=== PATIENT | male | born 1940 | race Caucasian/White ===

== ENCOUNTER 2023-09-04 10:36 | Emergency (ER) | payer OTHER, SELFPAY ==
[2023-09-04] VITALS (19 sets, daily range): BP systolic 109–159; BP diastolic 56–113
[2023-09-04] MEDS: NSS 500 IV (12:10)
[2023-09-04] MEDS: MORPHINE SULFATE 4 MG IV (12:10)
--- NOTE | 2023-09-04 12:23 | ED.GENMED ---
History of Present Illness
General
Chief Complaint: Extremity Pain (non-traumatic)
Source: patient and spouse
Exam Limitations: none
Time Seen by Provider: 09/04/23 11:54
Travel History
Have you had any contact with someone who has COVID-19?: No
Do you have any symptoms of coronavirus? Fever > 100 degrees, chills, cough, shortness of breath, sore throat, loss of taste or smell, muscle aches, or headache?: No
History of Present Illness
History of Present Illness:
Patient noted a sudden pain in the left proximal leg after getting out of a vehicle. No history of same. Pain is severe in nature. No other fall or injury
Past History
Past History
ED Past Medical History: HTN, NIDDM and Other (Herniated disc)
ED Past Surgical History: Orthopedic and Tonsilectomy
Review of Systems
Review of Systems
All Other Systems: Not applicable
ABD/GI: Reports no symptoms
Phy Exam
Physical Exam
Physical Exam:
GENERAL: Alert and oriented. Nontoxic but quite uncomfortable. Strongly requesting pain medication
EYE: Orbits normal.
NECK: Supple
CARDIAC: Regular rate and rhythm without any obvious murmurs.
LUNGS: Clear breath sounds,normal
ABDOMEN: Soft, without focal tenderness or distention
NEUROLOGICAL: Alert and oriented , grossly non-focal
SKIN: Warm and dry, no rash or lesion, no discoloration, skin intact.
MUSCULOSKELETAL: Shortening to the left leg with internal rotation. Good distal pulses and color. Chronic lower extremity edema. Significant pain with any hip rotation
PSYCH: Normal and appropriate interaction.
Course
Orders/Labs/Results
Orders:
Orders
09/04/23
Hip, Left 2-3 Views [CR Hip - LT w/wo Pel 2-3 Vw*] Urgent
Comment:
Reason For Exam: Sudden severe pain
Include a pelvis x-ray?: No
09/04/23 11:58
IV Insert/Care/Rem.- Treatment PRN
0.9% Sodium Chloride 500 ml [Nss] 500 ml IV BOLUS
Morphine Sulfate 4 mg IV NOW STA
09/04/23 13:01
Propofol [Diprivan] 20 ml .ROUTE .STK-MED
09/04/23 13:16
Hip, Left 1 View [CR Hip - LT without Pel 1 Vw] Stat
Comment:
Reason For Exam: post reducrtion stat
Abnormal Lab Results
09/04/23
13:51
POC Glucose 207 H mg/dl
(70-99)
Vital Signs
Initial and Last Documented VS:
Initial Vital Signs
Temp Pulse Resp BP Pulse Ox
97.8 F 97 18 159/95 100
09/04/23 11:11 09/04/23 11:11 09/04/23 11:11 09/04/23 11:11 09/04/23 11:11
Last Documented Vital Signs
Temp Pulse Resp BP Pulse Ox
97.8 F 88 17 144/97 98
09/04/23 13:53 09/04/23 14:09 09/04/23 14:09 09/04/23 14:41 09/04/23 14:43
Procedures
Moderate Sedation
ASA Risk Score: Class II
Chart and allergies reviewed: Yes
Consent for anesthesia obtained: Yes
Time out completed (validating right patient & procedure): Yes
History of difficult intubation: No
Airway free of obstruction: Yes
Patient has a gag reflex: Yes
Patient is able to open mouth: Yes
Patient has no dentures: Yes
Patient has no loose teeth: Yes
Medication administered by Provider during Moderate Sedation: IV Propofol (mg)
Total dose administered: 80
Time drug administered: 13:12
Start Time: 13:12
Stop Time: 13:23
Joint/Fracture Reduction
Left Hip:
Indication for procedure:: Dislocated left hip
Procedure completed by: Myself
Consent form signed: Yes
Joint reduced: with anesthesia sedation (With moderate sedation)
Anesthesia/sedation: Moderate sedation
Injury was: closed
Further treatement: needs re-check only
Post reduction exam: stable
Capillary Refill: normal
*Radiology
Radiology exam reviewed: preliminary read by ED provider (Dislocated left prosthetic hip) and radiology read reviewed (Relocated left prosthetic hip)
*Pulse Oximetry
Patient hypoxic: no
*Overhead Door Technician Interpretation
Rate: normal
Interpretation: normal
Heart Rate: 80
Rhythm: sinus
*Critical Care Note
Total Time (30-74mins, 75-104mins- exclusive of procedures): Not Applicable
ED Attending Note
-
Portions of this chart may have been created with voice recognition software.� Occasional wrong word or��sound alike� substitutions may have occurred due to the inherent limitations of voice recognition software.
Discharge Plan
Departure
Patient Disposition: Home (Routine Discharge)
Date of Disposition: 09/04/23
Time of Disposition: 13:45
Patient with high blood pressure during this ER visit?: Yes
Discharge Problem:
Left hip dislocation
Instructions: Hip Dislocation (DC), MODERATE SEDATION ADULT, BLOOD PRESSURE
Prescriptions:
No Action
atorvastatin 40 MG tablet
40 mg PO QPM
clonidine HCl 0.1 MG tablet
0.1 mg PO TID
metoprolol succinate 50 MG tablet extended release 24 hr
1 tab PO DAILY
tolterodine 4 MG capsule,extended release 24hr
1 cap PO DAILY
glipizide 5 MG tablet extended release 24hr
1 tab PO DAILY
amlodipine 5 MG tablet
5 mg PO DAILY
cyanocobalamin (vitamin B-12) [Vitamin B-12] 500 MCG tablet
50 mcg PO DAILY
ferrous sulfate [iron] 325 MG tablet
325 mg PO DAILY
chromium picolinate 200 MCG tablet
200 mcg PO DAILY
hydrochlorothiazide 25 MG tablet
25 mg PO DAILY
lisinopril 2.5 MG tablet
20 mg PO BID
dutasteride 0.5 MG capsule
0.5 mg PO DAILY
sitagliptin phos-metformin [Janumet] 1 EACH tablet
1 ea PO DAILY
alpha lipoic acid 300 MG capsule
300 mg PO DAILY
apixaban [Eliquis] 2.5 MG tablet
2.5 mg PO BID
cholecalciferol (vitamin D3) 125 MCG tablet,disintegrating
5,000 unit PO DAILY
Referrals:
Lamin Harris MD [Active] - Follow up in 5-7 days
Azar Hawkins MD [Family Provider] -
Activity Restrictions/Additional Instructions:
Keep the immobilizer on at all times.
Put a pillow between your legs when you are sitting or sleeping
Call the orthopedist for close follow-up
Interventions
Interventions:
*Risk Screen - Suicide Last Done: 09/04/23 15:19
*General Assessment Last Done: 09/04/23 13:55
*Neglect/Abuse Screening Last Done: 09/04/23 15:19
*ED COVID-19 Vaccine History Last Done: 09/04/23 11:11
*Nursing Disposition Last Done: 09/04/23 15:19
ED-Skin Assessment Last Done: 09/04/23 11:52
ED-Peripheral Vascular Assessment Last Done: 09/04/23 11:52
ED-Musculoskeletal Assessment Last Done: 09/04/23 11:52
Discharge Date and Time
Discharge Date/Time: 09/04/23 15:20
Print Language: LEBANESE
[2023-09-04 13:53] LABS: Glucose - Point of Care 207 mg/dl (70-99)
== END 2023-09-04 15:20 | disposition home or self-care (01) ==
LOC: EMR 10:36
PROVIDERS: EMERGENCY PHYSICIAN Emergency Medicine; FAMILY PHYSICIAN Family Medicine
DX: T84.021A Dislocation of internal left hip prosthesis, initial encounter (principal); X58.XXXA Exposure to other specified factors, initial encounter
CPT/HCPCS: 99284; 27265; 96374; 96361 ×2; 99152; 73501; 73502; 82962

== ENCOUNTER → 2023-09-18 10:40 | Outpatient (REF) | payer OTHER, SELFPAY ==
[2023-09-18 12:22] LABS: D-Dimer 1.31 ug/mlFEU (0.00-0.50)
[2023-09-18 12:27] LABS: % Basophils 0.7 % (0-2); % Eosinophils 4.4 % (0-6); % Immature Granulocytes 0.7 % (0-0.5); % Lymphocytes 19.1 % (20.5-51.1); % Monocytes 7.2 % (1.7-9.3); % Neutrophils 67.9 % (42.2-75.2); Absolute Basophils 0.1 10^3/uL (0-0.2); Absolute Eosinophils 0.4 10^3/uL (0-0.7); Absolute Immature Granulocytes 0.1 10^3/uL (0-0.05); Absolute Lymphocytes 1.8 10^3/uL (1.2-3.4); Absolute Monocytes 0.7 10^3/uL (0.1-0.6); Absolute Neutrophils 6.2 10^3/uL (1.4-6.5); Hematocrit 39.1 % (39.0-52.0); Mean Corp Hgb Conc. 33.2 g/dL (33.0-37.0); Mean Corpuscular Volume 90.1 fL (80.0-94.0); Mean Platelet Volume 11.2 fL (7.4-10.4); Nucleated Red Blood Cells % 0 % (-); Platelet Count 292 10^3/uL (130-400); Red Blood Cell Count 4.34 10^6/uL (4.70-6.10); Red Cell Dist. Width 13.1 % (11.5-14.5); White Blood Cell Count 9.2 10^3/uL (4.8-10.8)
[2023-09-18 12:49] LABS: Iron 74 ug/dl (49-181)
[2023-09-18 13:00] LABS: Percent Saturation 26 % (20-50); Total Iron Binding Capacity 284 ug/dl (261-462)
== END ==
LOC: HWLAB 10:40
PROVIDERS: ATTENDING PHYSICIAN Nurse Practitioner Adult Health; FAMILY PHYSICIAN Family Medicine
DX: I82.622 Acute embolism and thrombosis of deep veins of left upper extremity (principal)
CPT/HCPCS: 36415; 82728; 83540; 83550; 85025; 85379

== ENCOUNTER → 2023-09-23 15:14 | Outpatient (REF) | payer OTHER, SELFPAY | LOC: RAD 15:14 | PROVIDERS: ATTENDING PHYSICIAN Internal Medicine Hematology & Oncology; FAMILY PHYSICIAN Family Medicine | DX: I82.622 Acute embolism and thrombosis of deep veins of left upper extremity (principal) | CPT/HCPCS: 93971 ==

== ENCOUNTER → 2023-11-05 13:34 | Outpatient (REF) | payer OTHER, SELFPAY ==
[2023-11-05 15:33] LABS: D-Dimer 0.79 ug/mlFEU (0.00-0.50)
== END ==
LOC: HWLAB 13:34
PROVIDERS: ATTENDING PHYSICIAN Nurse Practitioner Primary Care; FAMILY PHYSICIAN Family Medicine
DX: I82.622 Acute embolism and thrombosis of deep veins of left upper extremity (principal)
CPT/HCPCS: 36415; 85379

== ENCOUNTER 2023-11-11 17:21 | Emergency (ER) | payer OTHER, SELFPAY ==
[2023-11-11] VITALS (14 sets, daily range): BP systolic 99–184; BP diastolic 71–138
[2023-11-11] MEDS: ZOFRAN 4 MG IV (19:05)
[2023-11-11] MEDS: DILAUDID 0.5 MG IV (19:05)
--- NOTE | 2023-11-11 20:12 | ED.MUSCINJ ---
HPI-Injury
<Angeles Bro NP - Last Filed: 11/11/23 23:08>
General
Chief Complaint: Musculo-Skeletal Complaint
Source: patient
Exam Limitations: none
Time Seen by Provider: 11/11/23 18:48
Nursing documentation reviewed up to this point in time: agreed with
History of Present Illness-Injury
Initial Injury comments:
Patient to ED with complaint of left hip pain. States he was getting into car when prosthetic hip dislocated. Had a dislocation 3 mos ago. Brought to ED via EMS for eval
Past History
<Angeles Bro NP - Last Filed: 11/11/23 23:08>
Past History
ED Past Medical History: HTN, NIDDM and Other (Herniated disc)
ED Past Surgical History: Orthopedic and Tonsilectomy
Review of Systems
<Angeles Bro NP - Last Filed: 11/11/23 23:08>
Review of Systems
Allergies reviewed?: Yes
All Other Systems: ROS reviewed and negative except as documented in HPI and ROS
Constitutional: Reports no symptoms
EENT: Reports no symptoms
Respiratory: Reports no symptoms
Cardiac: Reports no symptoms
ABD/GI: Reports no symptoms
: Reports no symptoms
Musculoskeletal: Reports joint pain (dislocation left hip)
Skin: Reports no symptoms
Neurological: Reports no symptoms
Psychiatric: Reports no symptoms
Musculoskeletal Injury Exam
<Angeles Bro COMIC ILLUSTRATOR - Last Filed: 11/11/23 23:08>
Musculoskeletal Injury Exam
Left Hip:
Pain with Movement?: Moderate
Tender to palpation?: Moderate
Soft tissue swelling?: None
External deformity and angulation?: None
Joint effusion?: None
Contusion?: None
Hematoma-local bleeding into tissue?: None
Strain- Sprain- Tear (Connective tissue injury)?: Moderate
Crepitus with movement?: No
Joint instability?: No
Malalignment/deformity?: No
Range of motion: Limited
Distal skin color and temperature: normal-warm & good color
Capillary Refill: normal
Normal distal neurovascular exam?: Yes
Peripheral Pulses: posterior tibial (left): 3+ and dorsalis pedis (left): 3+
Phy Exam
<Angeles Bro COMIC ILLUSTRATOR - Last Filed: 11/11/23 23:08>
General Physical Exam
General Presentation: well appearing
General age: appears stated age
General Skin: warm and dry
General Habitus: normal
Musculoskeletal Exam
Musculoskeletal Exam: neuro vasc intact
Skin Exam
Skin Exam: normal color, warm/dry and no rash
Psychiatric Exam
Psychiatric Exam: normal mood/affect
Injury Course
<Angeles Bro COMIC ILLUSTRATOR - Last Filed: 11/11/23 23:08>
Orders/Labs/Results
Orders:
Orders
11/11/23 18:48
HYDROmorphone [Dilaudid] 0.5 mg IV NOW STA
Ondansetron Injectable [Zofran] 4 mg IV NOW STA
Hip, Left 2-3 Views [CR Hip - LT w/wo Pel 2-3 Vw*] Urgent
Comment:
Reason For Exam: pain
Include a pelvis x-ray?: Yes
11/11/23 20:14
Propofol [Diprivan] 20 ml .ROUTE .STK-MED
11/11/23 20:43
Knee Immobilizer Left-Treatmen ONCE
Hip, Left 1 View [CR Hip - LT without Pel 1 Vw] Urgent
Comment:
Reason For Exam: portable post reduction
<Adrian Oneal DO - Last Filed: 11/11/23 20:46>
Orders/Labs/Results
Orders:
Orders
11/11/23 18:48
HYDROmorphone [Dilaudid] 0.5 mg IV NOW STA
Ondansetron Injectable [Zofran] 4 mg IV NOW STA
Hip, Left 2-3 Views [CR Hip - LT w/wo Pel 2-3 Vw*] Urgent
Comment:
Reason For Exam: pain
Include a pelvis x-ray?: Yes
11/11/23 20:14
Propofol [Diprivan] 20 ml .ROUTE .STK-MED
11/11/23 20:43
Knee Immobilizer Left-Treatmen ONCE
Hip, Left 1 View [CR Hip - LT without Pel 1 Vw] Urgent
Comment:
Reason For Exam: portable post reduction
Procedures
<Adrian Oneal, - Last Filed: 11/11/23 20:46>
Moderate Sedation
ASA Risk Score: Class II
Chart and allergies reviewed: Yes
Consent for anesthesia obtained: Yes
Time out completed (validating right patient & procedure): Yes
Moderate Sedation Start Time(when first medication is given): 20:39
History of difficult intubation: No
Airway free of obstruction: Yes
Patient has a gag reflex: Yes
Patient is able to open mouth: Yes
Patient has no dentures: Yes
Patient has no loose teeth: Yes
Medication administered by Provider during Moderate Sedation: IV Propofol (mg)
Total dose administered: 75
Time drug administered: 20:39
Moderate Sedation Procedure End Time: 20:50
Joint/Fracture Reduction
Left Posterior Lateral Hip:
Indication for procedure:: Left hip dislocation
Procedure completed by: Adrian Oneal DO
Consent form signed: Yes
Joint reduced: with anesthesia sedation
Injury was: closed
Further treatement: no treatment needed
Post reduction exam: stable
Capillary Refill: normal
Normal distal neurovascular exam?: Yes
Peripheral Pulses: dorsalis pedis (left): 2+
<Angeles Bro COMIC ILLUSTRATOR - Last Filed: 11/11/23 23:08>
*Critical Care Note
Total Time (30-74mins, 75-104mins- exclusive of procedures): Not Applicable
<Angeles Bro COMIC ILLUSTRATOR - Last Filed: 11/11/23 23:08>
Update Note
Update Note:
Left hip dislocation reduced by Dr. Oneal under moderate sedation
ED Attending Note
<Angeles Bro COMIC ILLUSTRATOR - Last Filed: 11/11/23 23:08>
-
Portions of this chart may have been created with voice recognition software.� Occasional wrong word or��sound alike� substitutions may have occurred due to the inherent limitations of voice recognition software.
<Adrian Oneal, DO - Last Filed: 11/11/23 20:46>
ED Attending Note
Patient seen and examined by attending physician: Yes
I performed the substantive portion of visit, reviewed & personally made and approve the management plan that is documented in note by myself or DOM.: Yes
ED Attending Note:
I have seen and evaluated the patient with a [id number] encounter. I have spoken to the advance practicer provider and involved in the medical history, the physical exam, medical decision making.
Evaluation and management service: agree unless noted differently below.
Results interpretation: agree unless noted differently below.
Focused HPI: 83-year-old male presenting for evaluation of dislocated left hip. This occurred as trying to the car. This happened a few months ago as well
Physical exam: Mildly uncomfortable. Left hip shortened but neurovascularly intact
Medical Decision Making: After signing consent, patient was given propofol for moderate sedation and the hip was reduced without difficulty. The foot remains neurovascularly intact
Discharge Plan
Departure
Patient Disposition: Home (Routine Discharge)
Date of Disposition: 11/11/23
Time of Disposition: 21:42
Patient with high blood pressure during this ER visit?: No
Condition: Good
Covid-19: Not Applicable
Discharge Problem:
Dislocation, hip
Instructions: Hip Dislocation, Using Cold for Pain, MODERATE SEDATION ADULT
Prescriptions:
No Action
atorvastatin 40 MG tablet
40 mg PO QPM
clonidine HCl 0.1 MG tablet
0.1 mg PO TID
metoprolol succinate 50 MG tablet extended release 24 hr
1 tab PO DAILY
tolterodine 4 MG capsule,extended release 24hr
1 cap PO DAILY
glipizide 5 MG tablet extended release 24hr
1 tab PO DAILY
amlodipine 5 MG tablet
5 mg PO DAILY
cyanocobalamin (vitamin B-12) [Vitamin B-12] 500 MCG tablet
50 mcg PO DAILY
ferrous sulfate [iron] 325 MG tablet
325 mg PO DAILY
chromium picolinate 200 MCG tablet
200 mcg PO DAILY
hydrochlorothiazide 25 MG tablet
25 mg PO DAILY
lisinopril 2.5 MG tablet
20 mg PO BID
dutasteride 0.5 MG capsule
0.5 mg PO DAILY
sitagliptin phos-metformin [Janumet] 1 EACH tablet
1 ea PO DAILY
alpha lipoic acid 300 MG capsule
300 mg PO DAILY
apixaban [Eliquis] 2.5 MG tablet
2.5 mg PO BID
cholecalciferol (vitamin D3) 125 MCG tablet,disintegrating
5,000 unit PO DAILY
Referrals:
Azar Hawkins MD [Family Provider] -
Activity Restrictions/Additional Instructions:
Follow up with your orthopedic provider in the AM
Interventions
Interventions:
*Risk Screen - Suicide Last Done: 11/11/23 19:03
*General Assessment Last Done: 11/11/23 17:23
*Neglect/Abuse Screening Last Done: 11/11/23 19:03
ED- Fall Risk Assessment Last Done: 11/11/23 22:03
*ED COVID-19 Vaccine History Last Done: 11/11/23 17:23
*Nursing Disposition Last Done: 11/11/23 22:03
ED-Musculoskeletal Assessment Last Done: 11/11/23 19:02
Discharge Date and Time
Discharge Date/Time: 11/11/23 22:04
Print Language: DANISH
== END 2023-11-11 22:04 | disposition home or self-care (01) ==
LOC: EMR 17:21
PROVIDERS: EMERGENCY PHYSICIAN Student in an Organized Health Care Education/Training Program; FAMILY PHYSICIAN Family Medicine
DX: T84.021A Dislocation of internal left hip prosthesis, initial encounter (principal); V48.4XXA Person boarding or alighting a car injured in noncollision transport accident, initial encounter; Y79.2 Prosthetic and other implants, materials and accessory orthopedic devices associated with adverse incidents; E11.9 Type 2 diabetes mellitus without complications; I10 Essential (primary) hypertension; M51.25 Other intervertebral disc displacement, thoracolumbar region; E78.5 Hyperlipidemia, unspecified; Z96.651 Presence of right artificial knee joint; Z96.642 Presence of left artificial hip joint
CPT/HCPCS: 99285; 27265; 99152; 73501; 73502

== ENCOUNTER 2023-11-19 15:35 | Emergency (ER) | payer OTHER, SELFPAY ==
[2023-11-19] VITALS (16 sets, daily range): BP systolic 108–170; BP diastolic 67–110
--- NOTE | 2023-11-19 16:16 | ED.MUSCINJ ---
HPI-Injury
General
Chief Complaint: Musculo-Skeletal Complaint
Time Seen by Provider: 11/19/23 16:00
History of Present Illness-Injury
Initial Injury comments:
Patient is an 83-year-old male with a history of left hip prosthesis with recurrent dislocations who presents with dislocated left hip. Notes that this occurred while he was getting out of his car today to go see his orthopedist. Was sent to the
emergency department for relocation. Denies head strike or injury elsewhere
Past History
Past History
ED Past Medical History: HTN, NIDDM and Other (Herniated disc)
ED Past Surgical History: Orthopedic and Tonsilectomy
Phy Exam
Physical Exam
Physical Exam:
General: No acute distress
Head: NCAT
Neck, Normal in appearance, no swelling
Respiratory: No Respiratory distress
Abdomen: No distension
Ext: Left leg is shortened. with tenderness and deformity at hip. Leg is well-perfused. Sensation intact throughout. Dorsiflexion and plantarflexion 5 out of 5. Lymphedema bilaterally chronic
Neuro: CEBALLOS, AOx4
Psych: Normal affect
Skin: Normal color
Injury Course
Orders/Labs/Results
Orders:
Orders
11/19/23 16:02
CR Hip - LT w/wo Pel 2-3 Vw* Urgent
Comment:
Reason For Exam: hip dislocation
Include a pelvis x-ray?: Yes
11/19/23 16:13
Propofol [Diprivan] 80 mg IV NOW STA
11/19/23 16:16
ASA Classification Routine
11/19/23 16:33
HYDROmorphone [Dilaudid] 0.5 mg .ROUTE .STK-MED ONE
HYDROmorphone [Dilaudid] 0.5 mg IV NOW STA
11/19/23 17:34
CR Hip - LT without Pel 1 Vw Urgent
Reason For Exam: reduction
Procedures
Moderate Sedation
ASA Risk Score: Class II
Chart and allergies reviewed: Yes
Consent for anesthesia obtained: Yes
Time out completed (validating right patient & procedure): Yes
History of difficult intubation: No
Airway free of obstruction: Yes
Patient has a gag reflex: Yes
Patient is able to open mouth: Yes
Patient has no dentures: Yes
Patient has no loose teeth: Yes
Medication administered by Provider during Moderate Sedation: IV Propofol (mg)
Total dose administered: 70
Time drug administered: 17:27
Moderate Sedation Procedure End Time: 17:40
Joint/Fracture Reduction
Left Hip:
Indication for procedure:: hip dislocation
Consent form signed: Yes
Joint reduced: with anesthesia sedation
Injury was: closed
Further treatement: no treatment needed
Post reduction exam: stable
Capillary Refill: normal
Normal distal neurovascular exam?: Yes
ED Attending Note
ED Attending Note
ED Attending Note:
hip dislocation, reduced successfully
placed in immobilizer
recovered from sedation
instructed to follow up with his orthopedist
-
Portions of this chart may have been created with voice recognition software.� Occasional wrong word or��sound alike� substitutions may have occurred due to the inherent limitations of voice recognition software.
Discharge Plan
Departure
Prescriptions:
No Action
atorvastatin 40 MG tablet
40 mg PO QPM
clonidine HCl 0.1 MG tablet
0.1 mg PO TID
metoprolol succinate 50 MG tablet extended release 24 hr
1 tab PO DAILY
tolterodine 4 MG capsule,extended release 24hr
1 cap PO DAILY
glipizide 5 MG tablet extended release 24hr
1 tab PO DAILY
amlodipine 5 MG tablet
5 mg PO DAILY
cyanocobalamin (vitamin B-12) [Vitamin B-12] 500 MCG tablet
50 mcg PO DAILY
ferrous sulfate [iron] 325 MG tablet
325 mg PO DAILY
chromium picolinate 200 MCG tablet
200 mcg PO DAILY
hydrochlorothiazide 25 MG tablet
25 mg PO DAILY
lisinopril 2.5 MG tablet
20 mg PO BID
dutasteride 0.5 MG capsule
0.5 mg PO DAILY
sitagliptin phos-metformin [Janumet] 1 EACH tablet
1 ea PO DAILY
alpha lipoic acid 300 MG capsule
300 mg PO DAILY
apixaban [Eliquis] 2.5 MG tablet
2.5 mg PO BID
cholecalciferol (vitamin D3) 125 MCG tablet,disintegrating
5,000 unit PO DAILY
Referrals:
Azar Hawkins MD [Family Provider] -
Interventions
Interventions:
*Risk Screen - Suicide Last Done: 11/19/23 16:00
*General Assessment Last Done: 11/19/23 16:00
*Neglect/Abuse Screening Last Done: 11/19/23 16:00
ED-Musculoskeletal Assessment Last Done: 11/19/23 16:00
Discharge Date and Time
Print Language: [place] CITIZEN
[2023-11-19] MEDS: DILAUDID 0.5 MG IV (16:35)
[2023-11-19] MEDS: DIPRIVAN 70 MG IV (17:27)
== END 2023-11-19 20:15 | disposition home or self-care (01) ==
LOC: EMR 15:35
PROVIDERS: EMERGENCY PHYSICIAN Emergency Medicine; FAMILY PHYSICIAN Family Medicine
DX: T84.021A Dislocation of internal left hip prosthesis, initial encounter (principal); X58.XXXA Exposure to other specified factors, initial encounter; Z96.642 Presence of left artificial hip joint; I10 Essential (primary) hypertension; E11.9 Type 2 diabetes mellitus without complications
CPT/HCPCS: 99283; 27266; 96374; 96375; 73501; 73502

== ENCOUNTER 2023-11-21 23:19 | Observation (INO) | payer OTHER, SELFPAY ==
[2023-11-21] VITALS (9 sets, daily range): BP systolic 103–144; BP diastolic 49–84; BMI 30.9
[2023-11-21 21:06] LABS: % Basophils 0.5 % (0-2); % Eosinophils 4.3 % (0-6); % Immature Granulocytes 0.5 % (0-0.5); % Lymphocytes 23.4 % (20.5-51.1); % Monocytes 8.5 % (1.7-9.3); % Neutrophils 62.8 % (42.2-75.2); Absolute Basophils 0.1 10^3/uL (0-0.2); Absolute Eosinophils 0.4 10^3/uL (0-0.7); Absolute Immature Granulocytes 0.1 10^3/uL (0-0.05); Absolute Lymphocytes 2.3 10^3/uL (1.2-3.4); Absolute Monocytes 0.8 10^3/uL (0.1-0.6); Absolute Neutrophils 6.2 10^3/uL (1.4-6.5); Mean Corp Hgb Conc. 32.6 g/dL (33.0-37.0); Mean Corpuscular Hgb 29.3 pg (27.0-31.0); Mean Platelet Volume 10.6 fL (7.4-10.4); Nucleated Red Blood Cells % 0 % (-); Platelet Count 247 10^3/uL (130-400); Red Blood Cell Count 4.78 10^6/uL (4.70-6.10); Red Cell Dist. Width 12.8 % (11.5-14.5); White Blood Cell Count 9.9 10^3/uL (4.8-10.8)
[2023-11-21] MEDS: DILAUDID 1 MG IV (21:09)
[2023-11-21] MEDS: ZOFRAN 4 MG IV (21:09)
--- NOTE | 2023-11-21 21:18 | ED.MUSCINJ ---
HPI-Injury
<DIAMOND Cortez - Last Filed: 11/21/23 22:45>
General
Chief Complaint: Musculo-Skeletal Complaint
Source: patient
Exam Limitations: none
Time Seen by Provider: 11/21/23 20:56
History of Present Illness-Injury
Is this injury a work related problem?: No
Is pt an associate of [facility]?: No
Initial Injury comments:
This is a 83 year old male that comes in with c/o left hip dislocation. State that he was here about 2 days ago with the same think. State that today he went to get out of a chair to use his walker and he did not have his knee immobilizer on.
States that he slipped and lowered himself to the floor. States that he did not his his head or have any LOC. Denies any fever, chills, chest pain, SOB, abd pain, nausea, vomiting, diarrhea, headache, dizziness, urinary burning
Past History
<DIAMOND Cortez - Last Filed: 11/21/23 22:45>
Past History
ED Past Medical History: HTN, Hypercholesterolemia, NIDDM and Other (Herniated disc C4- C5, Floaters, Lymphedema)
ED Past Surgical History: Orthopedic (left hip replacement, Right and left knee replacement, Laminectomy) and Tonsilectomy
Social History
Tobacco: Former smoker
Alcohol: Daily (Beer 1)
Personal:
Living: with family
Review of Systems
<DIAMOND Cortez - Last Filed: 11/21/23 22:45>
Review of Systems
All Other Systems: ROS reviewed and negative except as documented in HPI and ROS
Constitutional: Reports no symptoms; Denies fever or chills
EENT: Reports no symptoms
Respiratory: Reports no symptoms; Denies cough or trouble breathing
Cardiac: Reports no symptoms; Denies chest pain
ABD/GI: Reports no symptoms; Denies abdominal pain, nausea, vomiting or diarrhea
: Reports no symptoms; Denies dysuria, frequency or urgency
Musculoskeletal: Reports joint pain (Left hip )
Skin: Reports no symptoms
Neurological: Reports no symptoms; Denies dizzy or headache
Psychiatric: Reports no symptoms
Musculoskeletal Injury Exam
<DIAMOND Cortez - Last Filed: 11/21/23 22:45>
Musculoskeletal Injury Exam
Left Hip:
Pain with Movement?: Moderate
Tender to palpation?: Moderate
Soft tissue swelling?: None
External deformity and angulation?: Moderate
Joint effusion?: None
Contusion?: None
Hematoma-local bleeding into tissue?: None
Strain- Sprain- Tear (Connective tissue injury)?: None
Crepitus with movement?: No
Joint instability?: Yes
Malalignment/deformity?: Yes
Range of motion: Limited (Due to pain)
Distal skin color and temperature: normal-warm & good color
Capillary Refill: normal
Normal distal neurovascular exam?: Yes
Phy Exam
<DIAMOND Cortez - Last Filed: 11/21/23 22:45>
General Physical Exam
General Presentation: mild distress
General age: appears stated age
General Skin: warm and dry
General Habitus: elderly
General Mental: alert
General Hydration: dry mucous membranes
ENT Exam
ENT Exam: TM's normal, pharynx normal and neck supple
Eye Exam
Eye Exam: EOMI
Cardiovascular Exam
Cardiovascular Exam: regular rate/rhythm and normal peripheral pulses
Pulmonary Exam
Pulmonary Exam: lungs clear, no respiratory distress, no rales, chest non tender, no crackles, no rhonchi, no wheezing and no cough
Gastrointestinal Exam
Gastrointestinal Exam: normal bowel sounds, non tender, soft, no organomegaly, no pulsatile mass and non distended
Musculoskeletal Exam
Musculoskeletal Exam: edema (Chronic lymphedema +2 pitting from feet to knee's) and other (Internal rotation of left leg and shortened, Foot drop)
Skin Exam
Skin Exam: normal color, warm/dry, no rash and no petechia
Psychiatric Exam
Psychiatric Exam: normal mood/affect
Injury Course
<DIAMOND Cortez - Last Filed: 11/21/23 22:45>
Orders/Labs/Results
Orders:
Orders
11/21/23 21:00
CMP [Comprehensive Metabolic Panel] Urgent
Complete Blood Count/With Diff Urgent
11/21/23 21:05
Ondansetron Injectable [Zofran] 4 mg .ROUTE .STK-MED ONE
11/21/23 21:06
HYDROmorphone [Dilaudid] 1 mg .ROUTE .STK-MED ONE
HYDROmorphone [Dilaudid] 1 mg IV NOW STA
11/21/23 21:07
Ondansetron Injectable [Zofran] 4 mg IV NOW STA
Hip, Left 2-3 Views [CR Hip - LT w/wo Pel 2-3 Vw*] Urgent
Comment:
Reason For Exam: Fall, hip pain
Include a pelvis x-ray?: No
11/21/23 22:14
Propofol [Diprivan] 20 ml .ROUTE .STK-MED
11/21/23 22:30
Hip, Left 1 View [CR Hip - LT without Pel 1 Vw] Urgent
Comment:
Reason For Exam: post reduction
Abnormal Lab Results
11/21/23
21:00
MCHC 32.6 L g/dL
(33.0-37.0)
MPV 10.6 H fL
(7.4-10.4)
Abs Immat Gran (auto) 0.1 H 10^3/uL
(0-0.05)
Absolute Monos (auto) 0.8 H 10^3/uL
(0.1-0.6)
Sodium 134 L mmol/L
(135-145)
BUN 28 H mg/dl
(9-20)
Glucose 164 H mg/dl
(70-99)
Total Bilirubin 1.5 H mg/dl
(0.2-1.3)
11/21/23 21:00
11/21/23 21:00
Sodium very slightly low. Dehydration. Glucose nonfasting. Total amy slightly elevated.
<Rajiv Rocha, DO - Last Filed: 11/21/23 22:41>
Orders/Labs/Results
Orders:
Orders
11/21/23 21:00
CMP [Comprehensive Metabolic Panel] Urgent
Complete Blood Count/With Diff Urgent
11/21/23 21:05
Ondansetron Injectable [Zofran] 4 mg .ROUTE .STK-MED ONE
11/21/23 21:06
HYDROmorphone [Dilaudid] 1 mg .ROUTE .STK-MED ONE
HYDROmorphone [Dilaudid] 1 mg IV NOW STA
11/21/23 21:07
Ondansetron Injectable [Zofran] 4 mg IV NOW STA
Hip, Left 2-3 Views [CR Hip - LT w/wo Pel 2-3 Vw*] Urgent
Comment:
Reason For Exam: Fall, hip pain
Include a pelvis x-ray?: No
11/21/23 22:14
Propofol [Diprivan] 20 ml .ROUTE .STK-MED
11/21/23 22:30
Hip, Left 1 View [CR Hip - LT without Pel 1 Vw] Urgent
Comment:
Reason For Exam: post reduction
Abnormal Lab Results
07/05/24
21:00
MCHC 32.6 L g/dL
(33.0-37.0)
MPV 10.6 H fL
(7.4-10.4)
Abs Immat Gran (auto) 0.1 H 10^3/uL
(0-0.05)
Absolute Monos (auto) 0.8 H 10^3/uL
(0.1-0.6)
Sodium 134 L mmol/L
(135-145)
BUN 28 H mg/dl
(9-20)
Glucose 164 H mg/dl
(70-99)
Total Bilirubin 1.5 H mg/dl
(0.2-1.3)
11/21/23 21:00
11/21/23 21:00
Procedures
<DIAMOND Cortez - Last Filed: 11/21/23 22:45>
Moderate Sedation
ASA Risk Score: Class II
Chart and allergies reviewed: Yes
Consent for anesthesia obtained: Yes
Time out completed (validating right patient & procedure): Yes
Moderate Sedation Start Time(when first medication is given): 22:36
History of difficult intubation: No
Airway free of obstruction: Yes
Patient has a gag reflex: Yes
Patient is able to open mouth: Yes
Patient has no dentures: No
Patient has no loose teeth: No
Medication administered by Provider during Moderate Sedation: IV Propofol (mg)
Total dose administered: 60
Time drug administered: 10:26
Moderate Sedation Procedure End Time: 22:38
Comment: patient given Propofol 20mg at 22:26, Then 20mg at 22:27 and 20mg at 22:28
<Rajiv Rocha DO - Last Filed: 11/21/23 22:41>
Joint/Fracture Reduction
Left Hip:
Indication for procedure:: Left hip dislocation
Consent form signed: Yes
Joint reduced: with anesthesia sedation
Injury was: closed
Further treatement: no treatment needed
Post reduction exam: stable
Capillary Refill: normal
<DIAMOND Cortez - Last Filed: 11/21/23 22:45>
MDM/Problems Addressed
Differential Diagnosis Includes:
Left hip dislocation
MDM/Problems Addressed:
This is 83 year old male that comes in with c/o left hip pain. States that this is his 2nd or 3rd time here for the same thing. States that he went to get off his chair and use his walker. Patient states that he did not have his knee immobilizer on
and his left hip popped out again. States that he lowered himself to the floor.
Will get X-ray left hip and if dislocated will do Conscious sedation. Dr. Rocha into see patient and family. dose not want to take patient home as this is the 2nd time in a week that this has happened. Message sent to Dr. Feliciano. Await
his response.
Spoke with Dr. Feliciano. Will admit patient to hospitalist. Patient can then be fitted for abduction brace while here and care plan for further treatment. Will reduce hip and then admit.
Left hip reduction completed by Dr. Rocha.
Chronic conditions affecting care:
left hip replacement
Acute Exacerbation and/or Progression of Chronic Illness:
hip replacement left
<DIAMOND Cortez - Last Filed: 11/21/23 22:45>
*Radiology
Radiology exam reviewed: preliminary read by ED provider (Left hip dislocation. Left hip post reduction film== Hip reduced)
*Pulse Oximetry
Patient hypoxic: no
*EKG
Interpreted by ED Provider?: NA
Rate: EKG- N/A
*Proof Load Mechanic Interpretation
Rate: Proof Load Mechanic- N/A
*Critical Care Note
Total Time (30-74mins, 75-104mins- exclusive of procedures): Not Applicable
ED Attending Note
<DIAMOND Cortez - Last Filed: 11/21/23 22:45>
-
Portions of this chart may have been created with voice recognition software.� Occasional wrong word or��sound alike� substitutions may have occurred due to the inherent limitations of voice recognition software.
Discharge Plan
Departure
Patient Disposition: Admit
Date of Disposition: 11/21/23
Time of Disposition: 22:43
Admit to: Med/Surg
Presentation/result/management discussed w/ accepting MD/DO: Hospitalist
Patient with high blood pressure during this ER visit?: No
Condition: Good
Covid-19: Not Applicable
Discharge Problem:
Status post closed reduction of dislocated total hip prosthesis
Prescriptions:
No Action
atorvastatin 40 MG tablet
40 mg PO QPM
clonidine HCl 0.1 MG tablet
0.1 mg PO TID
metoprolol succinate 50 MG tablet extended release 24 hr
50 mg PO HS
tolterodine 4 MG capsule,extended release 24hr
4 mg PO DAILY
glipizide 5 MG tablet extended release 24hr
5 mg PO DAILY
amlodipine 5 MG tablet
5 mg PO HS
cyanocobalamin (vitamin B-12) [Vitamin B-12] 500 MCG tablet
50 mcg PO DAILY
ferrous sulfate [iron] 325 MG tablet
325 mg PO DAILY
chromium picolinate 200 MCG tablet
200 mcg PO DAILY
hydrochlorothiazide 25 MG tablet
25 mg PO DAILY
dutasteride 0.5 MG capsule
0.5 mg PO DAILY
Janumet 1 EACH tablet
1 ea PO BIDWMEAL
alpha lipoic acid 300 MG capsule
300 mg PO DAILY
Eliquis 2.5 MG tablet
2.5 mg PO BID
glipizide 10 mg tablet extended release 24hr
10 mg PO DAILY
lisinopril 20 mg tablet
20 mg PO HS
cholecalciferol (vitamin D3) 125 mcg (5,000 unit) Tablet
125 mcg PO QPM
Referrals:
Azar Hawkins MD [Family Provider] -
Interventions
Interventions:
*Risk Screen - Suicide Last Done: 11/21/23 20:48
*General Assessment Last Done: 11/21/23 20:48
*Neglect/Abuse Screening Last Done: 11/21/23 20:48
ED- Fall Risk Assessment Last Done: 11/21/23 20:50
*ED COVID-19 Vaccine History Last Done: 11/21/23 20:48
ED-Musculoskeletal Assessment Last Done: 11/21/23 20:49
Discharge Date and Time
Print Language: SUDANESE
[2023-11-21 21:30] LABS: ALT (SGPT) 25 U/L (0-50); AST (SGOT) 37 U/L (17-59); Albumin 4.3 g/dl (3.5-5.0); Alkaline Phosphatase 89 U/L (38-126); Blood Urea Nitrogen 28 mg/dl (9-20); Calcium 9.6 mg/dl (8.4-10.2); Carbon Dioxide 26 mmol/L (22-30); Chloride 98 mmol/L (98-107); Estimated Creatinine Clearance 66 ml/min; Glucose 164 mg/dl (70-99); Potassium 4.5 mmol/L (3.5-5.1); Sodium 134 mmol/L (135-145); Total Bilirubin 1.5 mg/dl (0.2-1.3); Total Protein 6.7 g/dl (6.3-8.2); eGFR > 60.00
--- NOTE | 2023-11-21 23:05 | HPS.HSE ---
Family Physician
-
Family Physician: Azar Hawkins
Chief Complaint
-
Fell and Lt Hip popped
History of Present Illness
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
- Lt hip popped while he tried to get up
- Reports Lt hip dislocation for the 3rd time in last 2weeks.
- Lt THR was 25 yrs ago.
- On [facility] Eliquis.
Denied hitting head
Medical History
Past Medical History
Past Medical History: Reports HTN, Hypercholesterolemia and NIDDM
Additional Past Medical History:
Herniated disc C4- C5,
Lymphedema
Past Surgical History: Reports Orthopedic (left hip replacement, Right and left knee replacement, Laminectomy) and Tonsilectomy
Social History
Tobacco: Former Smoker
Alcohol: Daily (1 beer )
Personal:
Living: With Family
Family History
Family History: Not pertinent
Allergies / Home Medications
Allergies reflects when Allergies were last updated in [facility].
Home Medications with original date entered in [facility]
Allergy/Medication List:
Allergies
Allergy/AdvReac Type Severity Reaction Status Date / Time
No Known Allergies Allergy Verified 11/21/23 20:43
Home Medications
alpha lipoic acid 300 mg capsule 300 mg PO DAILY 08/03/20
amlodipine 5 mg tablet 5 mg PO HS 08/03/20
apixaban 2.5 mg tablet (Eliquis) 2.5 mg PO BID 08/03/20
atorvastatin 40 mg tablet 40 mg PO QPM 08/03/20
chromium picolinate 200 mcg tablet 200 mcg PO DAILY 08/03/20
clonidine HCl 0.1 mg tablet 0.1 mg PO TID 08/03/20
cyanocobalamin (vitamin B-12) 500 mcg tablet (Vitamin B-12) 50 mcg PO DAILY 08/03/20
dutasteride 0.5 mg capsule 0.5 mg PO DAILY 08/03/20
ferrous sulfate 325 mg (65 mg iron) tablet (iron) 325 mg PO DAILY 08/03/20
glipizide 5 mg tablet, extended release 24 hr 5 mg PO DAILY taken w/ 10mg = 15mg 08/03/20
hydrochlorothiazide 25 mg tablet 25 mg PO DAILY 08/03/20
metoprolol succinate 50 mg tablet,extended release 24 hr 50 mg PO HS 08/03/20
sitagliptin phosphate 50 mg-metformin 1,000 mg tablet (Janumet) 1 ea PO BIDWMEAL 08/03/20
tolterodine 4 mg capsule,extended release 24 hr 4 mg PO DAILY 08/03/20
cholecalciferol (vitamin D3) 125 mcg (5,000 unit) tablet 125 mcg PO QPM 11/21/23
glipizide 10 mg tablet, extended release 24 hr 10 mg PO DAILY taken w/5mg = 15mg 11/21/23
lisinopril 20 mg tablet 20 mg PO HS 11/21/23
Review of Systems
-
Constitutional: Reports No Symptoms
EENT: Reports No Symptoms
Respiratory: Reports No Symptoms
Cardiac: Reports No Symptoms
Abdomen/GI: Reports No Symptoms
: Reports No Symptoms
Musculoskeletal: Reports See HPI
Skin: Reports No Symptoms
Neurological: Reports No Symptoms
Endocrine: Reports No Symptoms
Hematologic/Lymphatic: Reports No Symptoms
Psych: Reports No Symptoms
Physical Exam
Vital Signs
Vital Signs
Temp Pulse Resp BP Pulse Ox
97.9 F 79 12 136/80 99
11/21/23 23:00 11/21/23 23:00 11/21/23 23:00 11/21/23 23:00 11/21/23 23:00
Physical Exam
General: Well Developed, Well Nourished and Conversant
HEENT: NormoCephalic, Anicteric, Moist mucous membranes and Atraumatic
Respiratory: Clear
Breast: Deferred by me
GI: Soft, Non Tender and Non Distended
Rectal: Deferred by Provider
Genito-urinary: Deferred by me
Musculoskeletal: Other (chr b/l Kingsley lymphedema )
Skin: Warm and Dry
Neuro: AO x 3
Psych: Calm
Laboratory Results
-
11/21/23 21:00
11/21/23 21:00
Laboratory Results
Total Bilirubin 1.5 mg/dl (0.2-1.3) H 11/21/23 21:00
AST 37 U/L (17-59) 11/21/23 21:00
ALT 25 U/L (0-50) 11/21/23 21:00
Alkaline Phosphatase 89 U/L (38-126) 11/21/23 21:00
Data Reviewed
-
Diagnostic Radiology: Report Reviewed by me
Lab Data: Labs Reviewed by me
Old Records: Reviewed
Impression/Plan
-
Reviewed VS: afebrile 105/75 HR 80s POx 100 on RA
Data
Unremarkable CBC
Na 134
BUN 28
unremarkable Cr
BG 164
TB 1.5
nl LFTs
Hip XR
Superior dislocation of the left femoral prosthesis from the acetabular cup component.
NO PRIOR hospitalist admission:
ASSESSMENT & PLAN
Recurrent Lt Hip prosthetic dislocation
S/P closed reduction of dislocated total hip prosthesis
- cont. Hip abduction brace
- Pain control PRN
- PT/OT consult
- Ortho consulted
HX Cervical spine laminectomy 2018
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
Chr Eliquis is for line clot ???
Denied HX Kingsley DVT or PE
HX chr ambulatory dysfunction since back to back spine surgery: use walker
- cont. Eliquis
Chronic conditions:
Essential HTN: stable on Lisinopril, HCTZ, Clonidine , Metoprolol succinate with hold index
Hypercholesterolemia: on Atorvastatin
NIDDM; on Glipizide, Janumet. Add ISS low
DVT Px: on Eliquis
Code: Full code
Obs MS
[2023-11-22] VITALS: BP 142/73
[2023-11-22 00:34] VITALS: BP 171/81; BMI 30.1
[2023-11-22 07:30] VITALS: BP 154/83
[2023-11-22 07:37] LABS: Glucose - Point of Care 171 mg/dl (70-99)
[2023-11-22 08:19] LABS: Hematocrit 35.4 % (39.0-52.0); Hemoglobin 11.9 g/dL (13.0-18.0); Mean Corp Hgb Conc. 33.6 g/dL (33.0-37.0); Mean Corpuscular Hgb 29.9 pg (27.0-31.0); Mean Corpuscular Volume 88.9 fL (80.0-94.0); Mean Platelet Volume 10.7 fL (7.4-10.4); Platelet Count 220 10^3/uL (130-400); Red Blood Cell Count 3.98 10^6/uL (4.70-6.10); White Blood Cell Count 9.6 10^3/uL (4.8-10.8)
[2023-11-22 08:34] LABS: Blood Urea Nitrogen 23 mg/dl (9-20); Calcium 8.8 mg/dl (8.4-10.2); Carbon Dioxide 28 mmol/L (22-30); Chloride 101 mmol/L (98-107); Estimated Creatinine Clearance 65 ml/min; Glucose 162 mg/dl (70-99); Sodium 135 mmol/L (135-145); eGFR > 60.00
[2023-11-22] MEDS: NOVOLOG FLEXPEN-LOW RESISTANCE 1 UNITS SC ×2 (09:00→17:24)
[2023-11-22] MEDS: CATAPRES 0.1 MG PO ×3 (09:01→21:51)
[2023-11-22] MEDS: ELIQUIS 2.5 MG PO ×2 (09:02→20:11)
[2023-11-22] MEDS: ORETIC 25 MG PO (09:02)
[2023-11-22] MEDS: JANUVIA 50 MG PO ×2 (09:02→17:07)
[2023-11-22] MEDS: PROSCAR 5 MG PO (09:02)
[2023-11-22] MEDS: FEOSOL 325 MG PO (09:03)
[2023-11-22] MEDS: DETROL LA 4 MG PO (09:03)
[2023-11-22] MEDS: VITAMIN B-12 50 MCG PO (09:04)
[2023-11-22] MEDS: GLUCOTROL XL (EXTENDED RELEASE) 15 MG PO (09:04)
[2023-11-22] MEDS: FLUSH (NSS) 1 FLUSH IV (09:05)
[2023-11-22 10:01] LABS: Glycohemoglobin (HgbA1c) 8.1 % (4.0-5.6)
--- NOTE | 2023-11-22 10:24 | W.PN.HOSP.TC ---
Today's Communication/Plan
-
ortho recs
ct pelvis
Assessment / Plan
Assessment / Plan
Recurrent Lt Hip prosthetic dislocation
S/P closed reduction of dislocated total hip prosthesis
- cont. Hip abduction brace
- Hx of left hip arthroplasty 25 years ago
- Pain control PRN
- CT pelvis pending
- If surgical requirement needed -may need to hold eliquis. Await further ortho input
- Ortho consulted
HX Cervical spine laminectomy 2018
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
HX chr ambulatory dysfunction since back to back spine surgery: use walker
- cont. Eliquis
-follows with [facility] Dr. Hernández as output
Essential HTN: stable on Lisinopril, HCTZ, Clonidine , Metoprolol succinate with hold index
Hypercholesterolemia: on Atorvastatin
BPH/urinary incontinence: cont proscar and detrol
NIDDM; on Glipizide, Janumet. Add ISS low. A1C at 8.1. POC 171 am
Chronic bilateral lymphedema
Neuropathy with left foot drop chronic
DVT Px: on Eliquis
Code: Full code
Anticipated Discharge: > 48 hours
Subjective/Interval History
-
Date of Service: November 22, 2023
Denies pain to left hip
Objective Data
-
Labs:
Laboratory Results
11/22/23
07:00
WBC 9.6
Hgb 11.9 L
Hct 35.4 L
Plt Count 220
Sodium 135
Potassium 4.0
Chloride 101
Carbon Dioxide 28
BUN 23 H
Creatinine 1.0
Glucose 162 H
Calcium 8.8
Vital Signs:
Vital Signs
Temp Pulse Resp BP Pulse Ox
98.0 F 86 16 154/83 97
11/22/23 07:30 11/22/23 09:02 11/22/23 07:30 11/22/23 09:02 11/22/23 08:59
I&O
11/21/23 11/22/23 11/23/23
06:59 06:59 06:59
Output Total 1050 / 1050
Balance -1050 / -1050
Physical Exam
-
General: Well Developed and No Apparent Distress
HEENT: Normocephalic, Atraumatic and Moist Mucous Membranes
Respiratory: Clear to Auscultation
Cardiac: Regular Rhythm and S1/S2; Negative Murmur, Rub or Gallop
GI: Soft, Nontender, Nondistended and Normal Bowel Sounds; Negative Organomegaly
Rectal: Deferred by Provider
Musculoskeletal: No Clubbing, No Cyanosis, No Edema, Edema, Right Lower Extrem, Edema, Left Lower Extrem and Other (Left abductor brace noted )
Skin: Negative Rash
Neuro: Awake, Oriented, AO x 3, No Motor Deficits and Nonfocal/Grossly Intact
Psych: Calm
[2023-11-22 11:36] LABS: Glucose - Point of Care 255 mg/dl (70-99)
--- NOTE | 2023-11-22 12:15 | CON.ORTHO ---
Consultation
-
Date/Time Consultation Requested: 0911/21/2023
Date/Time Consultation Performed: 1200 11/22/2023
Requesting Provider: Marta Hester
Performing Provider: Bernardino Feliciano
Reason for Consultation: L hip dislocation
Consultation - Orthopedics
History
Orthopedic Surgery Note
CC: Left hip dislocation
HPI: 83-year-old male with a history of left hip replacement 25 years ago at [facility]. The left hip is doing very well until about 3 months ago when he fell and sustained a left hip dislocation. He was closed reduced in the emergency
department. He was noted on x-rays to have eccentric wear of the polyethylene liner. Up until this dislocation he had no problems with the hip. He has a history of lumbar spine fusion about 5 years ago complicated by infection and left leg
weakness including dropfoot. He has had 3 subsequent dislocations of the left hip. He was using a knee immobilizer. He was working with physical therapy. He is frustrated with his recurrent dislocations. He presented to the emergency department
last night and was admitted for an abduction brace. He is unaware of the name of the surgeon who did his surgery or the implants that were used.
PMH/PSH: HTN, HL, DM, h/o DVT from PICC line
Medications: reveiwed, eliquis
Family History: Family history was reviewed. Noncontributory
Social history: Nonsmoker, no illicit drugs
Exam
General appearance: Pleasant. No acute distress.
Head: Normocephalic/atraumatic
Nose: No lesions or discharge.
Skin: No obvious rashes or open wounds
Lungs: No audible wheezing, no cough or sputum production
Musculoskeletal:
LLE:
skin intact without open wounds
0/5 EHL/TA
4/5 GS/FHL
able to perform straight leg raise
sensation intact to light touch distally s/s/sp/dp/t
Toes wwp, 1+ DP
No tenderness over bony prominences or with passive joint ROM
no pain with passive hip motion
Imaging:
Pelvis and left hip x-rays performed at outside emergency department were reviewed by me. They show signs of a posterior dislocation of the left prosthetic hip. No signs of periprosthetic fracture. Postreduction films show eccentric wear of the
polyethylene component. CT scan of the pelvis was also reviewed by me. This shows appropriate condition of the cup on the coronal views. The axial views show about 20 degrees of anteversion.
Assessment and plan:
83-year-old male with recurrent left hip instability with polyethylene liner wear. No signs of periprosthetic fracture. I discussed with the patient treatment options. Long-term, revision hip surgery with polyethylene liner exchange with
hopefully help reduce the risk of further dislocation. We discussed that the polyethylene wear can lead to instability. Revision surgery not an option acutely due to lack of operative report or other identifier of the implants. Presently our team
is working to figure out the implant lard mixer in order to have compatible replacement parts. Discussing with colleagues, his implants may be [employer] Novation stem with [employer] alteon socket. I will work to figure out for the local [employer]
rep is and if they have available implants for his hip replacement that was performed 25 years ago. In the meantime, he should be fitted for a left hip abduction brace that limits flexion to 90 degrees, internal rotation to neutral, and adduction
to neutral. This should be worn at all times except for sleeping, bathing, and getting dressed. Once he has the abduction brace, he should work with physical therapy. If he is stable with the abduction brace, he may follow-up with me as an
outpatient to discuss planning for left hip revision surgery. Recommend ESR/CRP labs as well given history of spine infection. Low concern for acute PJI.
Bernardino Feliciano MD
> 75 minutes was spent reviewing the clinical information, evaluating the patient, and formulating clinical plan.
Allergies / Home Medications
Allergy/AdvReac Type Severity Reaction Status Date / Time
No Known Allergies Allergy Verified 11/21/23 20:43
�Medication �Instructions �Recorded
alpha lipoic acid 300 mg capsule 300 mg PO DAILY Supplement 08/03/20
amlodipine 5 mg tablet 5 mg PO HS Blood Pressure 08/03/20
apixaban 2.5 mg tablet (Eliquis) 2.5 mg PO BID Blood Clot 08/03/20
Prevention/Tx
atorvastatin 40 mg tablet 40 mg PO QPM High Cholesterol 08/03/20
chromium picolinate 200 mcg tablet 200 mcg PO DAILY Supplement 08/03/20
clonidine HCl 0.1 mg tablet 0.1 mg PO TID Blood Pressure 08/03/20
cyanocobalamin (vitamin B-12) 500 50 mcg PO DAILY Supplement 08/03/20
mcg tablet (Vitamin B-12)
dutasteride 0.5 mg capsule 0.5 mg PO DAILY Benign prostatic 08/03/20
hyperpla
ferrous sulfate 325 mg (65 mg 325 mg PO DAILY Supplement 08/03/20
iron) tablet (iron)
glipizide 5 mg tablet, extended 5 mg PO DAILY taken w/ 10mg = 08/03/20
release 24 hr 15mg/DIAB
hydrochlorothiazide 25 mg tablet 25 mg PO DAILY Fluid 08/03/20
Retention/Swelling
metoprolol succinate 50 mg 50 mg PO HS Blood Pressure 08/03/20
tablet,extended release 24 hr
sitagliptin phosphate 50 1 ea PO BIDWMEAL Diabetes 08/03/20
mg-metformin 1,000 mg tablet
(Janumet)
tolterodine 4 mg capsule,extended 4 mg PO DAILY Urinary Issue 08/03/20
release 24 hr
cholecalciferol (vitamin D3) 125 125 mcg PO QPM Supplement 11/21/23
mcg (5,000 unit) tablet
glipizide 10 mg tablet, extended 10 mg PO DAILY taken w/5mg = 11/21/23
release 24 hr 15mg/DIABET
lisinopril 20 mg tablet 20 mg PO HS Blood Pressure 11/21/23
Vital Signs / Lab Results
Temp Pulse Resp BP Pulse Ox
98.0 F 86 16 154/83 97
11/22/23 07:30 11/22/23 09:02 11/22/23 07:30 11/22/23 09:02 11/22/23 08:59
11/22/23 07:00
11/22/23 07:00
[2023-11-22] MEDS: NOVOLOG FLEXPEN-LOW RESISTANCE 3 UNITS SC (12:44)
--- NOTE | 2023-11-22 15:16 | PTCARENOTE ---
Pt c/o discomfort Lt hip/thigh area from Lt hip brace; area padded for comfort; [employer] rep notified. Will continue to assess site.
[2023-11-22 15:30] VITALS: BP 113/68
[2023-11-22 15:34] VITALS: BP 150/100; PULSE 90
[2023-11-22 15:50] LABS: Glucose - Point of Care 187 mg/dl (70-99)
--- NOTE | 2023-11-22 16:41 | PTCARENOTE ---
Pt AAO x3, CEBALLOS; OOB with assist x2/walker, pt keeps lt hip brace on at all times;LLE immobilizer in place with OOB activity. Pt ambulates slowly; has Lt foot drop. VSS. On room air- pulse ox 97%, no c/o SOB. Abd large, soft, adrian PO well. Voids
clear yellow urine in urinal. Pt has +2 edema BLE L>R; keeping legs elevated when in bed. Resting quietly at present; at bedside. Will continue to monitor.
[2023-11-22] MEDS: VITAMIN D3 (cholecalciferol) 125 MCG PO (17:25)
[2023-11-22] MEDS: LIPITOR 40 MG PO (17:25)
[2023-11-22] MEDS: NORVASC 5 MG PO (21:51)
[2023-11-22] MEDS: ZESTRIL 20 MG PO (21:52)
[2023-11-22 21:55] LABS: Glucose - Point of Care 173 mg/dl (70-99)
[2023-11-22 23:58] VITALS: BP 124/71
[2023-11-23 07:10] VITALS: BP 150/84
[2023-11-23 07:11] LABS: Hematocrit 33.6 % (39.0-52.0); Hemoglobin 11.3 g/dL (13.0-18.0); Mean Corp Hgb Conc. 33.6 g/dL (33.0-37.0); Mean Corpuscular Hgb 29.6 pg (27.0-31.0); Mean Platelet Volume 10.8 fL (7.4-10.4); Platelet Count 192 10^3/uL (130-400); Red Blood Cell Count 3.82 10^6/uL (4.70-6.10); Red Cell Dist. Width 13.1 % (11.5-14.5); White Blood Cell Count 7.1 10^3/uL (4.8-10.8)
[2023-11-23 07:20] LABS: Blood Urea Nitrogen 22 mg/dl (9-20); Calcium 9.1 mg/dl (8.4-10.2); Carbon Dioxide 32 mmol/L (22-30); Chloride 99 mmol/L (98-107); Estimated Creatinine Clearance 65 ml/min; Glucose 107 mg/dl (70-99); Potassium 4.2 mmol/L (3.5-5.1); Sodium 135 mmol/L (135-145); eGFR > 60.00
[2023-11-23 07:58] LABS: Glucose - Point of Care 122 mg/dl (70-99)
[2023-11-23] MEDS: NOVOLOG FLEXPEN-LOW RESISTANCE SC (08:43)
[2023-11-23] MEDS: DETROL LA 4 MG PO (08:44)
[2023-11-23] MEDS: ORETIC 25 MG PO (08:44)
[2023-11-23] MEDS: ELIQUIS 2.5 MG PO (08:45)
[2023-11-23] MEDS: JANUVIA 50 MG PO (08:45)
[2023-11-23] MEDS: CATAPRES 0.1 MG PO (08:45)
[2023-11-23] MEDS: VITAMIN B-12 50 MCG PO (08:45)
[2023-11-23] MEDS: TOPROL XL 50 MG PO (08:45)
[2023-11-23] MEDS: FEOSOL 325 MG PO (08:45)
[2023-11-23] MEDS: PROSCAR 5 MG PO (08:46)
[2023-11-23] MEDS: GLUCOTROL XL (EXTENDED RELEASE) 15 MG PO (08:49)
--- NOTE | 2023-11-23 11:04 | W.PN.HOSP.TC ---
Today's Communication/Plan
-
dc home
Assessment / Plan
Assessment / Plan
Recurrent Lt Hip prosthetic dislocation
S/P closed reduction of dislocated total hip prosthesis
- cont. Hip abduction brace
- Hx of left hip arthroplasty 25 years ago
- Pain control PRN
- CT pelvis No dislocation. No orthopedic hardware failure. No regional osseous fracture. Large joint effusion superior and posterior capsular distention.
- Imaging reviewed by ortho.
- Recommended Hip brace and Op f/u. May require revision surgery which be d/w in OP setting.
- PT/OT-home health.
- Ortho consulted
HX Cervical spine laminectomy 2018
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
HX chr ambulatory dysfunction since back to back spine surgery: use walker
- cont. Eliquis
-follows with [facility] Dr. Hernández as output
Essential HTN: stable on Lisinopril, HCTZ, Clonidine , Metoprolol succinate with hold index
Hypercholesterolemia: on Atorvastatin
BPH/urinary incontinence: cont proscar and detrol
NIDDM; on Glipizide, Janumet. Add ISS low. A1C at 8.1. POC 171 am
Chronic bilateral lymphedema
Neuropathy with left foot drop chronic
DVT Px: on Eliquis
Code: Full code
More than 30 minutes spent in discharge including
Final examination of the patient
Summarizing hospital stay
Instructions for continuing care to all relevant caregivers
Preparation of discharge records, prescriptions, and referral forms
Total time spent (in minutes): 52
Anticipated Discharge: Today
Subjective/Interval History
-
Date of Service: November 23, 2023
feeling better
received hip brace as ordered by ortho
Objective Data
-
Labs:
Laboratory Results
11/23/23
06:13
WBC 7.1
Hgb 11.3 L
Hct 33.6 L
Plt Count 192
Sodium 135
Potassium 4.2
Chloride 99
Carbon Dioxide 32 H
BUN 22 H
Creatinine 1.0
Glucose 107 H
Calcium 9.1
Vital Signs:
Vital Signs
Temp Pulse Resp BP Pulse Ox
98.2 F 74 16 150/79 97
11/23/23 07:10 11/23/23 08:45 11/23/23 07:10 11/23/23 08:45 11/23/23 07:10
I&O
11/22/23 11/23/23 11/24/23
06:59 06:59 06:59
Intake Total 780 / 780
Output Total 1050 / 1050 900 / 900 1200 / 1200
Balance -1050 / -1050 -120 / -120 -1200 / -1200
Physical Exam
-
General: Well Developed and No Apparent Distress
HEENT: Normocephalic, Atraumatic and Moist Mucous Membranes
Respiratory: Clear to Auscultation
Cardiac: Regular Rhythm and S1/S2; Negative Murmur, Rub or Gallop
GI: Soft, Nontender, Nondistended and Normal Bowel Sounds; Negative Organomegaly
Rectal: Deferred by Provider
Musculoskeletal: No Clubbing, No Cyanosis, No Edema, Edema, Right Lower Extrem, Edema, Left Lower Extrem and Other (left foot drop. Knee brace noted. Hip brace at bedside. )
Skin: Negative Rash
Neuro: Awake, Oriented, AO x 3, No Motor Deficits, Nonfocal/Grossly Intact and Other (LUE weakness chronic )
Psych: Calm
--- NOTE | 2023-11-23 11:13 | W.DCSUMMARY ---
Discharge Summary
Discharge Data
Date of Admission: 11/21/23
Date of Discharge: 11/23/23
-
Pending Results: No
Hospital Course
83-year-old male past medical history of cervical spine laminectomy, left hip fracture status post arthroplasty 25 years ago, hypertension, hyperlipidemia, BPH, diabetes mellitus type 2, bilateral lymphedema, neuropathy with left foot drop is
presenting from home after mechanical fall. Patient was found to have a hip dislocation and corrected in the ER. Patient with multiple episode of hip dislocation and was admitted to the hospital. Patient underwent CT pelvis No dislocation. No
orthopedic hardware failure. No regional osseous fracture. Large joint effusion superior and posterior capsular distention. CT was ordered and reviewed by orthopedic. Patient was evaluated by Dr. Feliciano and hip brace was ordered. Per orthopedic
since no dislocation noted on CT pelvis no acute surgical intervention needed. Recommended hip brace and then worked with physical therapy with outpatient evaluation for evaluation of the left hip. Patient was eval by PT and OT and be discharged
home.
Discharge Plan
-
Patient Disposition: Home with Home Care
Discharge Diagnosis/Procedures: Recurrent LEFT Hip prosthetic dislocation
Condition: Fair
Diet: As tolerated
Activity: With assistance and As tolerated
Driving Restrictions: Not until seen by your Dr
Activity Restrictions/Additional Instructions:
fitted for a left hip abduction brace that limits flexion to 90 degrees, internal rotation to neutral, and adduction to neutral. This should be worn at all times except for sleeping, bathing, and getting dressed.
Referrals:
Azar Hawkins MD [Family Provider] -
Brady Feliciano MD [Active] - in one to two weeks
Prescriptions:
Continued
atorvastatin 40 MG tablet
40 mg PO QPM
clonidine HCl 0.1 MG tablet
0.1 mg PO TID
metoprolol succinate 50 MG tablet extended release 24 hr
50 mg PO HS
tolterodine 4 MG capsule,extended release 24hr
4 mg PO DAILY
glipizide 5 MG tablet extended release 24hr
5 mg PO DAILY
amlodipine 5 MG tablet
5 mg PO HS
cyanocobalamin (vitamin B-12) [Vitamin B-12] 500 MCG tablet
50 mcg PO DAILY
ferrous sulfate [iron] 325 MG tablet
325 mg PO DAILY
chromium picolinate 200 MCG tablet
200 mcg PO DAILY
hydrochlorothiazide 25 MG tablet
25 mg PO DAILY
dutasteride 0.5 MG capsule
0.5 mg PO DAILY
Janumet 1 EACH tablet
1 ea PO BIDWMEAL
alpha lipoic acid 300 MG capsule
300 mg PO DAILY
Eliquis 2.5 MG tablet
2.5 mg PO BID
glipizide 10 mg tablet extended release 24hr
10 mg PO DAILY
lisinopril 20 mg tablet
20 mg PO HS
cholecalciferol (vitamin D3) 125 mcg (5,000 unit) Tablet
125 mcg PO QPM
Discharge Orders:
Discharge Patient (As Directed); Ordered 11/23/23
Ordered By: Jovanny Steele
Discharge Date and Time
Print Language: ROMANSH
[2023-11-23 12:20] LABS: Glucose - Point of Care 316 mg/dl (70-99)
[2023-11-23] MEDS: NOVOLOG FLEXPEN-LOW RESISTANCE 4 UNITS SC (13:09)
--- NOTE | 2023-11-23 13:18 | CM ---
Riky is discharging to home today with his . He will be returning for surgery after he sees the orthopedic surgeon as an outpatient.
VN offered but declined.
Plan: Discharge to home with no needs.
PCP: Azar Hawkins
Pharmacy: [facility] [place]
== END 2023-11-23 13:41 | disposition home health service (06) ==
LOC: 4 EAST ACU 23:19
PROVIDERS: Clinical Nurse Specialist Family Health; Registered Nurse; ADMITTING PHYSICIAN Internal Medicine; ATTENDING PHYSICIAN Hospitalist; CONSULT PHYSICIAN Orthopaedic Surgery; EMERGENCY PHYSICIAN Emergency Medicine; FAMILY PHYSICIAN Family Medicine
DX: T84.021A Dislocation of internal left hip prosthesis, initial encounter (principal); Y79.2 Prosthetic and other implants, materials and accessory orthopedic devices associated with adverse incidents; Y92.009 Unspecified place in unspecified non-institutional (private) residence as the place of occurrence of the external cause; Y84.8 Other medical procedures as the cause of abnormal reaction of the patient, or of later complication, without mention of misadventure at the time of the procedure; M25.452 Effusion, left hip; M25.552 Pain in left hip; I10 Essential (primary) hypertension; E78.00 Pure hypercholesterolemia, unspecified; N40.1 Benign prostatic hyperplasia with lower urinary tract symptoms; N39.498 Other specified urinary incontinence; E11.40 Type 2 diabetes mellitus with diabetic neuropathy, unspecified; M21.372 Foot drop, left foot; I89.0 Lymphedema, not elsewhere classified; E11.9 Type 2 diabetes mellitus without complications; E86.0 Dehydration; Z87.891 Personal history of nicotine dependence; Z96.642 Presence of left artificial hip joint; Z96.653 Presence of artificial knee joint, bilateral; Z79.01 Long term (current) use of anticoagulants; Z79.84 Long term (current) use of oral hypoglycemic drugs; Z98.1 Arthrodesis status
CPT/HCPCS: 27265; 72192; 73501; 73502; 80048; 80053; 82962; 83036; 85025; 85027; 96374; 96375; 97162; 97166; 99285; G0378

== ENCOUNTER 2023-12-04 11:17 | Inpatient (IN) | payer OTHER, SELFPAY ==
--- NOTE | 2023-12-01 11:31 | CM ---
Patient is scheduled for a L TH Revision on 12/04/23. Spoke with patient prior to surgery via telephone. Introduced role of Orthopedic Navigator. Patient reports that he lives with his in a one story home. There is one step to enter. He
currently functions independently and uses a rolling walker. He also has a cane, raised toilet seat and hip kit. He has never had VN services. PCP is Azar Hawkins.
Discussed orthopedic program and post surgical plans. Reviewed anticipated length of stay and that goal is for him to return home at discharge. Also reviewed outpatient PT. Patient is in agreement with tentative plan but likely benefit from VN
services; he selects VN. He will have support from his when he goes home.
Patient will complete online education.
Plan: Orthopedic Navigator will remain available to assist with the care of patient and will reassess discharge needs after surgery.
[2023-12-02 14:04] VITALS: BMI 29.5
[2023-12-02 15:01] LABS: C-Reactive Protein < 5.00 mg/L (0.0-10.00)
[2023-12-02 15:27] LABS: Erythrocyte Sed Rate 10 mm/hour (0-20)
[2023-12-04] VITALS (9 sets, daily range): BP systolic 118–150; BP diastolic 64–98; BMI 29.5
[2023-12-04 11:40] LABS: Glucose - Point of Care 234 mg/dl (70-99)
[2023-12-04] MEDS: CELEBREX 200 MG PO (11:41)
[2023-12-04] MEDS: NORMOSOL-R 1000 IV (11:42)
[2023-12-04] MEDS: TYLENOL 650 MG PO ×4 (11:42→23:59)
[2023-12-04 13:19] LABS: Glucose - Point of Care 215 mg/dl (70-99)
[2023-12-04 15:28] LABS: Glucose - Point of Care 228 mg/dl (70-99)
--- NOTE | 2023-12-04 16:18 | OR.RPT ---
Operative Report
Operative Report
Orthopaedic Surgery Operative Note
DATE OF OPERATION: 12/04/2023
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
POSTOPERATIVE DIAGNOSES: Same
OPERATION PERFORMED: Revision left total hip arthroplasty, both component, with femoral ball head and acetabular polyethylene liner conversion
SURGEON: Brady Feliciano MD
OPERATOR PREFINISH: Ccahorro Hearn PA-C who helped with patient and limb positioning and retraction
ANESTHESIA: General
COMPLICATIONS: None.
ESTIMATED BLOOD LOSS: 50 mL.
DRAINS: None
SPECIMEN: NA
FINDINGS: Nodular synovitis, mechanical wear of the posterior lip of the polyethylene liner and superior aspect
EXPLANTS:
- [employer] Acumatch 32mm acetabular liner, posterior lip
- [employer] metal ball head, 32mm +0
IMPLANTS:
- [employer] Acumatch XLE liner, 0 degree, size H, 36mm
- [employer] Delta 36mm ceramic head with inner sleeve, +3.5mm
INDICATIONS: The patient presented to my office with left hip pain. The patient had previously undergone total hip arthroplasty at an outside facility 2006. He had multiple dislocations of the left hip starting about 6 months prior. Xrays showed
eccentric wear of the polyethylene liner with well fixed implants. We reviewed the natural history of this problem, as well as the risks, benefits, and alternatives of various treatment options. The patient exhausted all nonoperative treatment
options and wished to proceed with revision hip replacement surgery. I discussed that primary revision option would be exchange of modular parts including femoral ball head and acetabular liner. I discussed that exchange of the metal acetabular or
femoral component may also be necessary if the components are noted to be loose or not in optimal position. Infection workup showed negative inflammatory markers. The patient understood the risks which included, but were not limited to, bleeding,
infection, failure to relieve pain, more pain than preop, damage to blood vessels and nerves, need for reoperation, mechanical failure of the implants, wound healing problems, stiffness, instability, blood clot, pulmonary embolism, myocardial
infarction, pneumonia, arrhythmia, CVA, and . The patient accepted these risks and wished to proceed. All questions were answered, and informed consent was obtained. He had preexisting weakness on the left and a foot drop on the left due to
prior spine surgery. Implant sizes were obtained from [facility]
PROCEDURE IN DETAIL: The patient was identified in the preoperative holding area. The left hip was identified as the operative site. The patient was taken in the operating room and transferred to the operative table. Genral anesthesia was performed.
IV antibiotics and tranexamic acid were administered. The patient was placed in the lateral position with Stulberg hip positioners. Axillary roll was placed. The down leg was well padded. All bony prominences were well padded. The operative limb was
prepped and draped in the usual sterile fashion.
Time out was performed. A posterolateral approach to the hip was used. The prior surgical scar was too posterior to be used for an extensile approach, so a new incision was made centered on the greater trochanter. Dissection was taken down sharply
through subcutaneous tissues. Meticulous hemostasis was achieved throughout the case with electrocautery. We split the fascia cole in line with skin incision. I split the gluteus nando bluntly. We cauterized all crossing vessels as we split it. I
palpated the sciatic nerve and made sure it was well posterior in the operative field. It was protected throughout the case.
I performed a partial bursectomy to identify the posterior capsule and soft tissue. This was atypical from prior surgery. The gluteus medius and minimus were identified and retracted anteriorly. I then performed a trapezoidal capsulotomy. The edges
were tagged for later repair. I dissected the capsule from about the femoral and acetabular prosthesis. I then gently dislocated the hip posteriorly. There was nodular synovitis in the joint. No purulence. The femoral component was inspect and noted
to be well positioned and well fixed to bone without loosening. The ball head was removed. It�s size was noted and compared to the stated size in the [facility] records and noted to be the same, 32mm. The turnion was inspected and found to be intact
without signs of corrosion or other damage. The synovium about the hip was noted to be nodular and redundant consistent with particle disease secondary to polyethylene wear. A synovectomy was performed of all the inflamed tissue about the hip.
I placed a curve hohmann retractor over the anterior lip of the acetabular component. The femur was carefully translated anteriorly to expose the acetabular component. A second retractor was placed inferiorly. Capsule was removed until a
circumferential view of the acetabulum was achieved. The acetabular component was noted to be well positioned and well fixed to bone. The polyethylene liner was noted to be worn about the posterior superior aspect eccentrically and centrally about
the lip of the liner consistent with impingement. The liner was disengaged from the locking mechanism. This mechanism was inspected and noted to be intact without damage. The size was confirmed and compared to stated size in the [employer] records and
noted to be the same. The socket was irrigated and then the new liner was impacted into place.
The hip was trialed with trial ball heads. Decision was made to convert from 32mm ball head to 36mm femoral ball head to improve stability. A highly cross linked vitamin E polyethylene insert was also used to reduce risk of polywear. Because the
acetabular lipped liner was worn about the lip consistent with impingement, decision was made after trialing to convert to a neutral acetabular liner. The hip was noted during trialing to be stable throughout the arch of motion. The hip was taken
through a complete range of motion. It was noted to be stable in extension without impingement. It was stable in the position of sleep and in flexion with internal rotation. The limb length and offset were checked compared to the capsular flap and
the down leg and was appropriate. The trials were removed. The final acetabular liner was impacted into place and engaged with the locking mechanism. The femoral ball head was removed, and the final ball head was impacted onto a clean and dry [place]
taper. The hip was reduced.
A dilute betadine soak was performed for approximately 3 minutes, and then the hip was copiously irrigated. I repaired the capsul and posterior soft tissue with #2 Ethibond to drill holes in the greater trochanter. Local anesthetic was injected. The
fascia cole was closed with #1 PDS in running fashion. The subcutaneous tissues were closed with 2-0 PDS in running fashion. The skin was reapproximated with 3-0 Monocryl subcuticular suture. I placed a Prineo dressing followed by a Mepilex Ag
dressing. The patient awoke from anesthesia without difficulty. Sponge and instrument counts were correct x2 at the end of the case.
I was present and participated in the entire procedure. I checked leg length at the ankles after transfer on the bed which was equal. The patient was sent to the recovery room in stable condition.
Bernardino Felicinao MD
[2023-12-04] MEDS: NOVOLOG FLEXPEN-MODERATE RESISTANCE SC (17:00)
[2023-12-04 17:08] LABS: Glucose - Point of Care 221 mg/dl (70-99)
[2023-12-04] MEDS: LIPITOR 40 MG PO (17:43)
[2023-12-04] MEDS: CATAPRES 0.1 MG PO ×2 (17:43→21:37)
[2023-12-04] MEDS: COLACE 100 MG PO (19:49)
[2023-12-04] MEDS: SENOKOT 17.2 MG PO (19:49)
[2023-12-04] MEDS: NORVASC 5 MG PO (21:36)
[2023-12-04] MEDS: ZESTRIL 20 MG PO (21:37)
[2023-12-04] MEDS: ANCEF 5 IV (21:37)
[2023-12-04 21:51] LABS: Glucose - Point of Care 339 mg/dl (70-99)
[2023-12-05] MEDS: TYLENOL 650 MG PO ×3 (04:43→12:36)
[2023-12-05] MEDS: ANCEF 5 IV (05:21)
[2023-12-05 06:44] LABS: Hematocrit 36.1 % (39.0-52.0); Hemoglobin 12.4 g/dL (13.0-18.0)
[2023-12-05 07:10] LABS: Blood Urea Nitrogen 31 mg/dl (9-20); Calcium 9.1 mg/dl (8.4-10.2); Carbon Dioxide 27 mmol/L (22-30); Chloride 96 mmol/L (98-107); Estimated Creatinine Clearance 53 ml/min; Glucose 256 mg/dl (70-99); Potassium 4.8 mmol/L (3.5-5.1); Sodium 134 mmol/L (135-145); eGFR > 60.00
[2023-12-05 07:20] VITALS: BP 143/92
--- NOTE | 2023-12-05 07:38 | PN.DE.MGMTRT ---
Insulin Management
- -
12/05/2023: Diabetes Management Consult
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
PMH: Recurrent Lt Hip prosthetic dislocation, HTN, Hypercholesterolemia BPH/urinary incontinence, Chronic bilateral lymphedema Neuropathy with left foot drop chronic and NIDDM. A1C 8.1% on 11/21, Cr 1.1, eGFR >60. Was taking Glipizide 15mg BID and
Janumet prior to admission.
Pt awake, A/O x3, resting up in bed, very pleasant, offers no complaints, able to discuss diabetes mgt
His oral diabetes meds have been on hold since admission. Glucose trended up to 339 @ HS, fasting 256(V).
Will resume his outpatient regimen: start Glipizide 15mg BID, Metformin 1000mg BID and Januvia 100mg daily (takes Janumet NF)
Cont corrective insulin with meals. Change diet from regular to dora controlled 1999 ADA diet.
Discussed diabetes plan of care with pt and Nurse
Diabetes History
- -
Type of Diabetes: 2
Pre-Admission Diabetes Regimen
12/05/23
05:31
Creatinine 1.1
Insulin Pump Settings
IP Diabetes Regimen
12/04/23 12/04/23 12/04/23
11:35 13:18 15:27
Glucose
POC Glucose 234 H 215 H 228 H
12/04/23 12/04/23 12/05/23
17:07 21:50 05:31
Glucose 256 H
POC Glucose 221 H 339 H
Patient Education
[2023-12-05 08:44] LABS: Glucose - Point of Care 197 mg/dl (70-99)
[2023-12-05] MEDS: NOVOLOG FLEXPEN-MODERATE RESISTANCE SC (08:46)
--- NOTE | 2023-12-05 08:57 | CM ---
Addendum entered by DANO Reed 12/05/23 12:10:
[employer] down. [facility] coordinator asked for RN to be taken out of order. NEw order sent via a new script to [facility] with PT and OT order. Per Nino at [facility] the PT will assess and request RN to be added to service. RN will go out Friday or Friday.
Addendum entered by DANO Reed 12/05/23 11:53:
SPoke to to give update. She will come in to pickle pumper patient early this afternoon. She will be present for discharge instructions.
Original Note:
Rounds held with PT and OT. Also spoke to RN. Patient is admitted for a L TH Revision on 12/04/23. Spoke with patient at bedside. Confirmed information discussed prior to surgery. Plan is for patient to go home with his 's support.
Patient has a rolling walker, cane, raised toilet seat and hip kit.
He will go [facility] services. money order clerk to fax discharge paper work to [facility].
Prescription medications sent to his [facility].
Plan home today.
[2023-12-05] MEDS: DETROL LA 4 MG PO (09:16)
[2023-12-05] MEDS: GLUCOTROL 5 MG PO (09:16)
[2023-12-05] MEDS: GLUCOPHAGE 1000 MG PO (09:17)
[2023-12-05] MEDS: PROSCAR 5 MG PO (09:17)
[2023-12-05] MEDS: JANUVIA 100 MG PO (09:17)
[2023-12-05] MEDS: GLUCOTROL 10 MG PO (09:17)
[2023-12-05] MEDS: COLACE PO (09:26)
[2023-12-05] MEDS: SENOKOT PO (09:26)
[2023-12-05] MEDS: CATAPRES 0.1 MG PO (09:30)
--- NOTE | 2023-12-05 11:44 | W.PN.ORTHO ---
Today's Communication / Plan
-
d/c
Assessment
.
Distal Motor Intact: Yes
Dressing:
Clean, dry and intact.
Assessment:
Hx DVT
Plan
.
Surgery / Date: L KAREN Revision 12/04/23
DVT Prophylaxis: Other (Eliquis 2.5mg bid)
Activity:
Out of bed.
PT/OT
Discharge Plan: Home w/ VN
Subjective
.
.:
Patient resting comfortably.
Vital Signs and Labs
.
Vital Signs and Labs:
Lab Results
12/05/23 05:31
12/05/23 05:31
Temp Pulse Resp BP Pulse Ox
97.8 F 76 18 143/92 99
12/05/23 07:20 12/05/23 07:20 12/05/23 07:20 12/05/23 07:20 12/05/23 08:00
Non-invasive Hgb result: 10.4
Physical Exam
-
HEENT: No pallor, cyanosis, or jaundice. Throat clear.
NECK: Supple. No JVD.
RESPIRATORY: Lungs clear to auscultation.
CVS: S1, S2 normal. RRR.� No murmur, rub or gallop.
ABDOMEN: Soft, non-tender. No distension. BS+/normal.
EXTREMITIES: strength equal, no calf pain with palpation
NURSE EPIDEMIOLOGIST: AOx3. No focal deficits. patient monitor grossly intact
[2023-12-05 11:48] LABS: Glucose - Point of Care 156 mg/dl (70-99)
[2023-12-05 11:55] VITALS: BP 126/72; PULSE 85; O2SAT 100
--- NOTE | 2023-12-05 11:56 | W.DS.TRANS ---
DC Summary - Bridge Crane Operator
-
Discharge Instructions:
Sleep Apnea Risk Intermediate
Discharge Diagnosis/Procedures L KAREN Revision 12/04/23 Dr. Feliciano
Diet Diabetic, Carb Controlled
Activity With Walker
Driving Restrictions No driving
Bathing Restrictions OK to Shower
Other Services PT,OT
Instructions:
Stand-Alone Forms: Total Hip/Knee Replacement D/C
Changes to Home Medications: Yes
Discharge Medications:
DC Medications w/original date entered in [employer]
alpha lipoic acid 300 mg capsule 300 mg PO DAILY PRN 'depends on how I feel' 08/03/20
amlodipine 5 mg tablet 5 mg PO HS Blood Pressure 08/03/20
apixaban 2.5 mg tablet (Eliquis) 2.5 mg PO BID Blood Clot Prevention/Tx 08/03/20
atorvastatin 40 mg tablet 40 mg PO 1700 High Cholesterol 08/03/20
chromium picolinate 200 mcg tablet 200 mcg PO PRN PRN 'depends on how I feel' 08/03/20
clonidine HCl 0.1 mg tablet 0.1 mg PO TID Blood Pressure 08/03/20
cyanocobalamin (vitamin B-12) 500 mcg tablet (Vitamin B-12) 50 mcg PO DAILY PRN 'depends on how I feel' 08/03/20
dutasteride 0.5 mg capsule 0.5 mg PO DAILY Benign prostatic hyperpla 08/03/20
ferrous sulfate 325 mg (65 mg iron) tablet (iron) 325 mg PO DAILY PRN 'depends on how I feel' 08/03/20
glipizide 5 mg tablet, extended release 24 hr 5 mg PO DAILY taken w/ 10mg = 15mg/DIAB 08/03/20
hydrochlorothiazide 25 mg tablet 25 mg PO DAILY Fluid Retention/Swelling 08/03/20
metoprolol succinate 50 mg tablet,extended release 24 hr 50 mg PO DAILY Blood Pressure 08/03/20
tolterodine 4 mg capsule,extended release 24 hr 4 mg PO DAILY Urinary Issue 08/03/20
cholecalciferol (vitamin D3) 125 mcg (5,000 unit) tablet 125 mcg PO DAILY PRN 'depends on how I feel' 11/21/23
glipizide 10 mg tablet, extended release 24 hr 10 mg PO DAILY taken w/5mg = 15mg/DIABET 11/21/23
lisinopril 20 mg tablet 20 mg PO HS Blood Pressure 11/21/23
sitagliptin phosphate 50 mg-metformin 1,000 mg tablet (Janumet) 1 tab PO BID Diabetes 12/01/23
Saccharomyces boulardii 250 mg capsule (Florastor) 250 mg PO BID #1 cap 12/05/23
acetaminophen 325 mg capsule (Tylenol) 650 mg (2 x 325 mg) PO QID #2 caps 12/05/23
cefadroxil 500 mg capsule 500 mg PO BID infection prevention #14 caps 12/05/23
docusate sodium 100 mg capsule (Colace) 100 mg PO BID stool softner #1 cap 12/05/23
magnesium hydroxide 400 mg/5 mL oral suspension (Milk of Magnesia) 30 ml PO HS PRN Constipation #1 mL 12/05/23
oxycodone 5 mg tablet 5 mg PO Q6H PRN 1 tab moderate pain, 2 tabs severe pain #30 tabs 12/05/23
sennosides 8.6 mg tablet (Senokot) 17.2 mg (2 x 8.6 mg) PO BID laxative #2 tabs 12/05/23
Home Medication Changes
apixaban 2.5 mg tablet (Eliquis) 2.5 mg PO BID Blood Clot Prevention/Tx 08/03/20
cefadroxil 500 mg capsule 500 mg PO BID infection prevention #14 caps 12/05/23
oxycodone 5 mg tablet 5 mg PO Q6H PRN 1 tab moderate pain, 2 tabs severe pain #30 tabs 12/05/23
Pending Results: No
[2023-12-05 12:29] VITALS: BP 151/79; PULSE 92; O2SAT 97
[2023-12-05] MEDS: NOVOLOG FLEXPEN-MODERATE RESISTANCE 1 UNITS SC (12:35)
[2023-12-05 13:14] VITALS: BP 128/66
== END 2023-12-05 13:40 | disposition home health service (06) | DRG 468 ==
LOC: 2 SOUTH 11:17
PROVIDERS: Physician Assistant Surgical; ADMITTING PHYSICIAN Orthopaedic Surgery; FAMILY PHYSICIAN Family Medicine
PROC: 0SPB0JZ Removal of Synthetic Substitute from Left Hip Joint, Open Approach (ICD-10-PCS; 2023-12-04)
PROC: 0SRB02Z Replacement of Left Hip Joint with Metal on Polyethylene Synthetic Substitute, Open Approach (ICD-10-PCS; 2023-12-04)
DX: T84.061A Wear of articular bearing surface of internal prosthetic left hip joint, initial encounter (principal); E11.22 Type 2 diabetes mellitus with diabetic chronic kidney disease; I12.9 Hypertensive chronic kidney disease with stage 1 through stage 4 chronic kidney disease, or unspecified chronic kidney disease; N18.9 Chronic kidney disease, unspecified; I70.0 Atherosclerosis of aorta; T84.021A Dislocation of internal left hip prosthesis, initial encounter; M16.12 Unilateral primary osteoarthritis, left hip; M65.88 Other synovitis and tenosynovitis, other site; Y79.2 Prosthetic and other implants, materials and accessory orthopedic devices associated with adverse incidents; E78.2 Mixed hyperlipidemia; I87.2 Venous insufficiency (chronic) (peripheral); I89.0 Lymphedema, not elsewhere classified; N40.0 Benign prostatic hyperplasia without lower urinary tract symptoms; M21.372 Foot drop, left foot; R26.2 Difficulty in walking, not elsewhere classified; Z79.84 Long term (current) use of oral hypoglycemic drugs; Z79.899 Other long term (current) drug therapy; Z86.718 Personal history of other venous thrombosis and embolism; Z87.891 Personal history of nicotine dependence; Z98.1 Arthrodesis status; Z96.642 Presence of left artificial hip joint; Z96.653 Presence of artificial knee joint, bilateral
CPT/HCPCS: 36415; 73502; 80048; 82962; 85014; 85018; 85652; 86140; 86850; 86900; 86901; 87070; 97116; 97162; 97166; 97535

== ENCOUNTER 2024-02-17 22:07 | Emergency (ER) | payer OTHER, SELFPAY ==
[2024-02-17 22:10] VITALS: BP 170/92
[2024-02-17 22:59] VITALS: BMI 29.4
--- NOTE | 2024-02-17 23:00 | ED.SKININJ ---
HPI-Injury
<KARRIE Henriquez - Last Filed: 02/18/24 01:01>
General
Chief Complaint: Skin Surface Trauma
Source: patient
Time Seen by Provider: 02/17/24 22:41
Nursing documentation reviewed up to this point in time: agreed with
History of Present Illness-Injury
Is this injury a work related problem?: No
Initial Injury comments:
Patient is an 84 year old male with a PMH of lymphedema presenting to the ED with complaints of a skin laceration x 7 hours. Patient states as he was getting out of his car at 400pm he hit his left lower leg on the lateral side. He currently takes
Eliquis. He denies falling and claims he didn't feel it at first. He noticed bleeding after getting inside the house and wrapped it up which stopped the bleeding. A couple of hours later they took the wrapping off and his leg started bleeding
profusely. He could not stop the bleeding so he came here. Patient denies any pain headache light headedness sob chest pain palpitations.
Patient has a PMH of b/l lower extremity lympedema HTN DVTs HLD DM. Patient currently takes Eliquis for clot prevention. Patient is a former smoker and admits to alcohol consumption.
Past History
<KARRIE Henriquez - Last Filed: 02/18/24 01:01>
Past History
ED Past Medical History: HTN, Hypercholesterolemia, NIDDM and Other (Herniated disc C4- C5, Floaters, Lymphedema)
ED Past Surgical History: Orthopedic (left hip replacement, Right and left knee replacement, Laminectomy) and Tonsilectomy
Social History
Tobacco: Former smoker
Alcohol: Daily (Beer 1)
Personal:
Living: with family
Review of Systems
<KARRIE Henriquez - Last Filed: 02/18/24 01:01>
Review of Systems
Allergies reviewed?: Yes
Other source history: family ()
Constitutional: Reports no symptoms
Respiratory: Reports no symptoms
Cardiac: Reports no symptoms
Neurological: Reports no symptoms
Hematologic/Lymphatic: Reports bleeding (L lower extremity at site of injury.)
Skin Exam
<KARRIE Henriquez - Last Filed: 02/18/24 01:01>
Laceration
Left Lower Lateral Distal Leg:
Length in cm: 5
Orientation: L shaped
Type of Laceration: simple
Distal skin color and temperature: normal-warm & good color
Phy Exam
<KARRIE Henriquez - Last Filed: 02/18/24 01:01>
General Physical Exam
General Presentation: well appearing
General age: appears stated age
General Habitus: normal and elderly
General Mental: alert
Cardiovascular Exam
Cardiovascular Exam: regular rate/rhythm, no edema, no gallop, no JVD and no murmur
Pulmonary Exam
Pulmonary Exam: lungs clear, no respiratory distress, no rales, chest non tender, no crackles, no rhonchi, no stridor, no wheezing and no cough
Skin Exam
Skin Exam: laceration (5 cm flap laceration on L lower distal leg lateral side )
Course
<KARRIE Henriquez - Last Filed: 02/18/24 01:01>
Orders/Labs/Results
Orders:
Orders
02/17/24 23:31
Tetanus/Diphth/Acelpertussis [Adacel] 0.5 ml IM .ONCE ONE
Vital Signs
Initial and Last Documented VS:
Initial Vital Signs
Temp Pulse Resp BP Pulse Ox
97.8 F 90 22 170/92 96
02/17/24 22:10 02/17/24 22:10 02/17/24 22:10 02/17/24 22:10 02/17/24 22:10
Last Documented Vital Signs
Temp Pulse Resp BP Pulse Ox
97.8 F 90 22 161/78 99
02/17/24 22:10 02/17/24 22:10 02/17/24 22:10 02/18/24 00:00 02/18/24 00:00
<Andre Riggins DO - Last Filed: 02/18/24 01:01>
Orders/Labs/Results
Orders:
Orders
02/17/24 23:31
Tetanus/Diphth/Acelpertussis [Adacel] 0.5 ml IM .ONCE ONE
Vital Signs
Initial and Last Documented VS:
Initial Vital Signs
Temp Pulse Resp BP Pulse Ox
97.8 F 90 22 170/92 96
02/17/24 22:10 02/17/24 22:10 02/17/24 22:10 02/17/24 22:10 02/17/24 22:10
Last Documented Vital Signs
Temp Pulse Resp BP Pulse Ox
97.8 F 90 22 161/78 99
02/17/24 22:10 02/17/24 22:10 02/17/24 22:10 02/18/24 00:00 02/18/24 00:00
Procedures
<Andre Riggins DO - Last Filed: 02/18/24 01:01>
Laceration Closure
Left Lower Lateral Calf:
Status of Wound: clean
Size of Wound in cm: 5
Description of Wound Edges: flap-well vascularized
Anesthesia: 1% Lidocaine
Revision/Debridement: routine- no revision
Wound exploration: explored to base- no FB
Type of Closure: single layer closure
Number of sutures: 9
<KARRIE Henriquez - Last Filed: 02/18/24 01:01>
*Critical Care Note
Total Time (30-74mins, 75-104mins- exclusive of procedures): Not Applicable
<Andre Riggins DO - Last Filed: 02/18/24 01:01>
*Critical Care Note
Total Time (30-74mins, 75-104mins- exclusive of procedures): Not Applicable
ED Attending Note
<KARRIE Henriquez - Last Filed: 02/18/24 01:01>
-
Portions of this chart may have been created with voice recognition software.� Occasional wrong word or��sound alike� substitutions may have occurred due to the inherent limitations of voice recognition software.
<Andre Riggins DO - Last Filed: 02/18/24 01:01>
ED Attending Note
Patient seen and examined by attending physician: Yes
I performed the substantive portion of visit, reviewed & personally made and approve the management plan that is documented in note by myself or DOM.: Yes
ED Attending Note:
This is a pleasant 84-year-old male presents to the emergency department with skin laceration to the left lower lateral leg. He was getting out of his car when he caught his leg. Patient is on Eliquis. He was unable to get the bleeding to stop.
Denies fever, chills, nausea or vomiting. Upon arrival, bleeding had stopped. Patient was seen in conjunction with the PA student. I have reviewed and agree with the history and treatment plan presented. On my independent physical exam, patient
is awake, alert, and oriented x3. There is approximately 5 cm skin flap. Wound was anesthetized with lidocaine and appropriate analgesia and anesthesia was established, it was sutured.
Discharge Plan
Departure
Patient Disposition: Home (Routine Discharge)
Date of Disposition: 02/18/24
Time of Disposition: 00:08
Patient with high blood pressure during this ER visit?: Yes
Condition: Good
Discharge Problem:
Laceration
Instructions: Wound Care (DC), Laceration Repair With Stitches (DC), BLOOD PRESSURE
Prescriptions:
No Action
atorvastatin 40 MG tablet
40 mg PO 1700
clonidine HCl 0.1 MG tablet
0.1 mg PO TID
metoprolol succinate 50 MG tablet extended release 24 hr
50 mg PO DAILY
tolterodine 4 MG capsule,extended release 24hr
4 mg PO DAILY
glipizide 5 MG tablet extended release 24hr
5 mg PO DAILY
amlodipine 5 MG tablet
5 mg PO HS
cyanocobalamin (vitamin B-12) [Vitamin B-12] 500 MCG tablet
50 mcg PO DAILY PRN (Reason: 'depends on how I feel' )
ferrous sulfate [iron] 325 MG tablet
325 mg PO DAILY PRN (Reason: 'depends on how I feel' )
chromium picolinate 200 MCG tablet
200 mcg PO PRN PRN (Reason: 'depends on how I feel' )
hydrochlorothiazide 25 MG tablet
25 mg PO DAILY
dutasteride 0.5 MG capsule
0.5 mg PO DAILY
alpha lipoic acid 300 MG capsule
300 mg PO DAILY PRN (Reason: 'depends on how I feel' )
Eliquis 2.5 MG tablet
2.5 mg PO BID
glipizide 10 mg tablet extended release 24hr
10 mg PO DAILY
lisinopril 20 mg tablet
20 mg PO HS
cholecalciferol (vitamin D3) 125 mcg (5,000 unit) Tablet
125 mcg PO DAILY PRN (Reason: 'depends on how I feel' )
Janumet 50-1,000 mg Tablet
1 tab PO BID
cefadroxil 500 mg capsule
500 mg PO BID Qty: 14 0RF
Rx Instructions:
*Take w/ food
*Take w/ probiotic
*POST-OP USE
docusate sodium [Colace] 100 mg capsule
100 mg PO BID Qty: 1 0RF
Saccharomyces boulardii [Florastor] 250 mg capsule
250 mg PO BID Qty: 1 0RF
magnesium hydroxide [Milk of Magnesia] 400 mg/5 mL suspension
30 ml PO HS PRN (Reason: Constipation) Qty: 1 0RF
sennosides [Senokot] 8.6 mg tablet
17.2 mg PO BID Qty: 2 0RF
oxycodone 5 mg tablet
5 mg PO Q6H PRN (Reason: 1 tab moderate pain, 2 tabs severe pain) Qty: 30 0RF
Rx Instructions:
Ongoing therapy
acetaminophen [Tylenol] 325 mg capsule
650 mg PO QID Qty: 2 0RF
Referrals:
Azar Hawkins MD [Family Provider] -
Activity Restrictions/Additional Instructions:
Sutures can be removed in 7 to 10 days.
It was a pleasure meeting you and taking part in your care. We hope for your continued healing and wellness.
Please read discharge instructions in their entirety. However, they are for general education and may not describe your exact diagnosis at discharge. Information on your ER visit and medical conditions were discussed with you along with appropriate
follow up information...
If indicated, please take your medications as instructed and indicated on discharge paperwork.
Please schedule a follow up appointment as directed. Call to schedule an appointment
Please return to the emergency department with ANY change in, persisting, or worsening of symptoms. If any of your symptoms do not improve, or persist, or become more severe within 6-12 hours, please return to the emergency department for further
care.
Please return to the emergency department if you develop a headache, neck pain/stiffness, fever greater than 100.4F, chest pain, shortness of breath, persistent nausea, vomiting, slurred speech, difficulty walking, numbness/tingling, weakness, signs
of infection or any other symptoms that are worrisome to you.
If you have any questions or concerns please do not hesitate to call the Hospital at or E-mail me directly at [email or web address]
Interventions
Interventions:
*Risk Screen - Suicide Last Done: 02/17/24 22:10
*General Assessment Last Done: 02/17/24 23:00
*Neglect/Abuse Screening Last Done: 02/17/24 22:10
*ED COVID-19 Vaccine History Last Done: 02/17/24 23:00
*Nursing Disposition Last Done: 02/18/24 00:29
ED-Skin Assessment Last Done: 02/17/24 23:01
Discharge Date and Time
Discharge Date/Time: 02/18/24 00:30
Print Language: VIETNAMESE
[2024-02-17 23:05] VITALS: BP 158/82
[2024-02-17] MEDS: ADACEL 0.5 ML IM (23:43)
[2024-02-18] VITALS: BP 161/78
== END 2024-02-18 00:30 | disposition home or self-care (01) ==
LOC: EMR 22:07
PROVIDERS: EMERGENCY PHYSICIAN Student in an Organized Health Care Education/Training Program; FAMILY PHYSICIAN Family Medicine
DX: S81.812A Laceration without foreign body, left lower leg, initial encounter (principal); V48.4XXA Person boarding or alighting a car injured in noncollision transport accident, initial encounter; Z23 Encounter for immunization; I89.0 Lymphedema, not elsewhere classified; I10 Essential (primary) hypertension; H43.399 Other vitreous opacities, unspecified eye; E11.40 Type 2 diabetes mellitus with diabetic neuropathy, unspecified; E78.00 Pure hypercholesterolemia, unspecified; M50.20 Other cervical disc displacement, unspecified cervical region; N40.0 Benign prostatic hyperplasia without lower urinary tract symptoms; M19.90 Unspecified osteoarthritis, unspecified site; Z79.01 Long term (current) use of anticoagulants; Z96.642 Presence of left artificial hip joint; Z96.653 Presence of artificial knee joint, bilateral; Z86.718 Personal history of other venous thrombosis and embolism; Z87.891 Personal history of nicotine dependence; Z87.01 Personal history of pneumonia (recurrent)
CPT/HCPCS: 99282; 12002; 90471; 90715

== ENCOUNTER → 2024-06-29 10:40 | Outpatient (REF) | payer OTHER, SELFPAY ==
[2024-06-29 16:37] LABS: D-Dimer 0.63 ug/mlFEU (0.00-0.50)
[2024-06-29 17:05] LABS: % Basophils 0.7 % (0-2); % Eosinophils 6.9 % (0-6); % Immature Granulocytes 0.6 % (0-0.5); % Lymphocytes 20.6 % (20.5-51.1); % Monocytes 8.3 % (1.7-9.3); % Neutrophils 62.9 % (42.2-75.2); Absolute Basophils 0.1 10^3/uL (0-0.2); Absolute Eosinophils 0.5 10^3/uL (0-0.7); Absolute Lymphocytes 1.4 10^3/uL (1.2-3.4); Absolute Monocytes 0.6 10^3/uL (0.1-0.6); Absolute Neutrophils 4.4 10^3/uL (1.4-6.5); Hematocrit 41.5 % (39.0-52.0); Hemoglobin 13.5 g/dL (13.0-18.0); Mean Corp Hgb Conc. 32.5 g/dL (33.0-37.0); Mean Corpuscular Hgb 29.5 pg (27.0-31.0); Mean Corpuscular Volume 90.8 fL (80.0-94.0); Mean Platelet Volume 11.7 fL (7.4-10.4); Nucleated Red Blood Cells % 0 % (-); Platelet Count 221 10^3/uL (130-400); Red Blood Cell Count 4.57 10^6/uL (4.70-6.10); Red Cell Dist. Width 13.2 % (11.5-14.5)
[2024-06-29 17:23] LABS: Ferritin 22.7 ng/ml (17.9-464.0)
[2024-06-29 17:27] LABS: Iron 81 ug/dl (49-181)
[2024-06-29 17:36] LABS: Percent Saturation 25 % (20-50); Total Iron Binding Capacity 324 ug/dl (261-462)
== END ==
LOC: HWLAB 10:40
PROVIDERS: ATTENDING PHYSICIAN Internal Medicine Hematology & Oncology; FAMILY PHYSICIAN Family Medicine
DX: I82.622 Acute embolism and thrombosis of deep veins of left upper extremity (principal); Z79.01 Long term (current) use of anticoagulants; D50.9 Iron deficiency anemia, unspecified
CPT/HCPCS: 36415; 82728; 83540; 83550; 85025; 85379

== ENCOUNTER 2024-08-03 15:48 | Inpatient (IN) | payer OTHER, SELFPAY ==
[2024-08-03] VITALS (12 sets, daily range): BP systolic 114–163; BP diastolic 63–104; BMI 29.0; BMI 28.2
--- NOTE | 2024-08-03 08:41 | ED.GENMED ---
History of Present Illness
<Lizzy Galvan PA-C - Last Filed: 08/03/24 14:49>
General
Chief Complaint: Musculo-Skeletal Complaint
Source: patient
Exam Limitations: none
Time Seen by Provider: 08/03/24 08:19
History of Present Illness
History of Present Illness:
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 He started to experience pain 2 weeks ago. He states he
'slipped' while getting into a chair at symptom onset but did not truly fall. He reports pain to the lateral aspect of the right hip. He had some back and groin pain last week which has since resolved. He made an appointment with orthopedics
which is scheduled for tomorrow. He woke up around 2:30am this morning with severe pain to the hip. Pain is worse with movement and weight bearing. He has a history of prior left hip dislocations and he states his current pain is worse. He was
apparently supposed to get his right hip replaced 15 years ago which was never done. He has baseline neuropathy which is unchanged. He also has lymphedema to his lower extremities and he has noticed that his right thigh has been slightly more
swollen. He denies any testicular pain, difficulty urinating, incontinence, fevers, abdominal pain.
Past History
<Lizzy Galvan PA-C - Last Filed: 08/03/24 14:49>
Past History
ED Past Medical History: HTN, Hypercholesterolemia, NIDDM and Other (Herniated disc C4- C5, Floaters, Lymphedema)
ED Past Surgical History: Orthopedic (left hip replacement, Right and left knee replacement, Laminectomy) and Tonsilectomy
Social History
Tobacco: Former smoker
Alcohol: Daily (Beer 1)
Personal:
Living: with family
Phy Exam
<Lizzy Galvan PA-C - Last Filed: 08/03/24 14:49>
General Physical Exam
General Presentation: well appearing and no apparent distress
General age: appears stated age
General Skin: warm and dry
General Habitus: normal
General Mental: alert
ENT Exam
ENT Exam: normocephalic
Pulmonary Exam
Pulmonary Exam: no respiratory distress
Gastrointestinal Exam
Gastrointestinal Exam: non tender, soft and non distended
Neurological Exam
Neurological Exam: alert
Daniela Coma Scale
Eye Opening: Spontaneous
Verbal Response: Oriented
Motor Response: Obeys Commands
GCS Total Score: 15
Musculoskeletal Exam
Musculoskeletal Exam: other (R hip: No deformity. Small scab noted to lateral hip. No tenderness to palpation of the joint. ROM is decreased and he has severe pain with hip flexion. No lumbar spine tenderness. No pitting edema in thigh and
compartments are soft. Strong DP doppler signal present. )
Skin Exam
Skin Exam: normal color and warm/dry
Psychiatric Exam
Psychiatric Exam: normal mood/affect
<Becky Watters DO - Last Filed: 08/03/24 13:51>
Daniela Coma Scale
GCS Total Score: 15
Course
<Lizzy Galvan PA-C - Last Filed: 08/03/24 14:49>
Orders/Labs/Results
Orders:
Orders
08/03/24 08:35
Hip, Right 2-3 Views [CR Hip - RT w/wo Pel 2-3 Vw*] Urgent
Comment:
Reason For Exam: pain
Include a pelvis x-ray?: Yes
08/03/24 08:36
US Periph Venous LOWER Ext RT Urgent
Comment:
Reason For Exam: increased swelling and pain
08/03/24 08:39
Oxycodone/Acetaminophen [Percocet 5/325] 1 tablet PO NOW STA
08/03/24 10:21
CT Abd/pel Without Iv Or Oral Urgent
Reason For Exam: R hip pain, r/o occult fracture
08/03/24 11:47
Complete Blood Count/With Diff Urgent
Comprehensive Metabolic Panel Urgent
PTT Urgent
Prothrombin Time Urgent
08/03/24 12:05
CT Angio Abd/Pelvis w/wo IV [CT Abd/pelvis Angio W/wo Iv] Urgent
Comment:
Reason For Exam: Retroperitoneal bleed, eval for active extrav
08/03/24 13:34
HYDROmorphone [Dilaudid] 0.5 mg IV NOW STA
Abnormal Lab Results
08/03/24
11:47
WBC 12.1 H 10^3/uL
(4.8-10.8)
RBC 4.34 L 10^6/uL
(4.70-6.10)
Hct 38.6 L %
(39.0-52.0)
MPV 10.6 H fL
(7.4-10.4)
Abs Immat Gran (auto) 0.1 H 10^3/uL
(0-0.05)
Absolute Neuts (auto) 10.2 H 10^3/uL
(1.4-6.5)
Absolute Lymphs (auto) 1.0 L 10^3/uL
(1.2-3.4)
Absolute Monos (auto) 0.7 H 10^3/uL
(0.1-0.6)
Neutrophils % 84.1 H %
(42.2-75.2)
Lymphocytes % 8.0 L %
(20.5-51.1)
Sodium 134 L mmol/L
(135-145)
Chloride 94 L mmol/L
(98-107)
BUN 26 H mg/dl
(9-20)
Glucose 233 H mg/dl
(70-99)
Total Bilirubin 1.4 H mg/dl
(0.2-1.3)
08/03/24 11:47
08/03/24 11:47
Vital Signs
Initial and Last Documented VS:
Initial Vital Signs
Temp Pulse Resp BP Pulse Ox
97.7 F 86 20 138/76 95
08/03/24 08:01 08/03/24 08:01 08/03/24 08:01 08/03/24 08:01 08/03/24 08:01
Last Documented Vital Signs
Temp Pulse Resp BP Pulse Ox
97.7 F 86 20 135/90 99
08/03/24 08:01 08/03/24 08:01 08/03/24 08:01 08/03/24 10:05 08/03/24 10:30
<Becky Watters, DO - Last Filed: 08/03/24 13:51>
Orders/Labs/Results
Orders:
Orders
08/03/24 08:35
Hip, Right 2-3 Views [CR Hip - RT w/wo Pel 2-3 Vw*] Urgent
Comment:
Reason For Exam: pain
Include a pelvis x-ray?: Yes
08/03/24 08:36
US Periph Venous LOWER Ext RT Urgent
Comment:
Reason For Exam: increased swelling and pain
08/03/24 08:39
Oxycodone/Acetaminophen [Percocet 5/325] 1 tablet PO NOW STA
08/03/24 10:21
CT Abd/pel Without Iv Or Oral Urgent
Reason For Exam: R hip pain, r/o occult fracture
08/03/24 11:47
Complete Blood Count/With Diff Urgent
Comprehensive Metabolic Panel Urgent
PTT Urgent
Prothrombin Time Urgent
08/03/24 12:05
CT Angio Abd/Pelvis w/wo IV [CT Abd/pelvis Angio W/wo Iv] Urgent
Comment:
Reason For Exam: Retroperitoneal bleed, eval for active extrav
08/03/24 13:34
HYDROmorphone [Dilaudid] 0.5 mg IV NOW STA
Abnormal Lab Results
08/03/24
11:47
WBC 12.1 H 10^3/uL
(4.8-10.8)
RBC 4.34 L 10^6/uL
(4.70-6.10)
Hct 38.6 L %
(39.0-52.0)
MPV 10.6 H fL
(7.4-10.4)
Abs Immat Gran (auto) 0.1 H 10^3/uL
(0-0.05)
Absolute Neuts (auto) 10.2 H 10^3/uL
(1.4-6.5)
Absolute Lymphs (auto) 1.0 L 10^3/uL
(1.2-3.4)
Absolute Monos (auto) 0.7 H 10^3/uL
(0.1-0.6)
Neutrophils % 84.1 H %
(42.2-75.2)
Lymphocytes % 8.0 L %
(20.5-51.1)
Sodium 134 L mmol/L
(135-145)
Chloride 94 L mmol/L
(98-107)
BUN 26 H mg/dl
(9-20)
Glucose 233 H mg/dl
(70-99)
Total Bilirubin 1.4 H mg/dl
(0.2-1.3)
08/03/24 11:47
08/03/24 11:47
Vital Signs
Initial and Last Documented VS:
Initial Vital Signs
Temp Pulse Resp BP Pulse Ox
97.7 F 86 20 138/76 95
08/03/24 08:01 08/03/24 08:01 08/03/24 08:01 08/03/24 08:01 08/03/24 08:01
Last Documented Vital Signs
Temp Pulse Resp BP Pulse Ox
97.7 F 86 20 135/90 99
08/03/24 08:01 08/03/24 08:01 08/03/24 08:01 08/03/24 10:05 08/03/24 10:30
<Lizzy Galvan PA-C - Last Filed: 08/03/24 14:49>
MDM/Problems Addressed
Differential Diagnosis Includes:
84yoM here with R hip pain x 2 weeks. Started after he 'slipped' into a chair. Severe pain since last night. Pain worse with movement/weight bearing. Hx of prior L hip replacement and was apparently told 15 years ago he needed a R hip replacement.
VSS. He is well appearing. R hip is normal to inspection other than a small scab. ROM decreased and flexion elicits pain. RLE is neurovascularly intact. Differential diagnosis includes but is not limited to: osteoarthritis, fracture, DVT, lumbar
radiculopathy
Initial ED plan: Check R hip x-rays and venous duplex. Percocet for pain.
<Lizzy Galvan PA-C - Last Filed: 08/03/24 14:49>
*Critical Care Note
Total Time (30-74mins, 75-104mins- exclusive of procedures): Not Applicable
<Lizzy Galvan PA-C - Last Filed: 08/03/24 14:49>
Update Note
Update Note:
Venous duplex negative for DVT. X-rays show moderate osteoarthritis but no acute fractures. Patient continues to be in severe pain. CT pelvis was added to assess for occult fracture. CT shows a large acute right retroperitoneal hematoma in the
right iliopsoas muscle. CTA abdomen/pelvis added which does not show active extravasation. Hematoma measuring 25cm. Hemoglobin stable at 13.0 and vitals remain stable. No indication for Kcentra. Patient admitted for further evaluation and
management.
ED Attending Note
<Lizzy Galvan PA-C - Last Filed: 08/03/24 14:49>
-
Portions of this chart may have been created with voice recognition software.� Occasional wrong word or��sound alike� substitutions may have occurred due to the inherent limitations of voice recognition software.
<Becky Watters DO - Last Filed: 08/03/24 13:51>
ED Attending Note
Patient seen and examined by attending physician: Yes
I performed the substantive portion of visit, reviewed & personally made and approve the management plan that is documented in note by myself or DOM.: Yes
I performed a history and physical exam of patient and discussed management with resident, I reviewed resident's note and agree with documented findings and plan of care.: Yes
ED Attending Note:
84-year-old male with prior history of DVT on Eliquis and lymphedema presenting for acute onset of right hip pain. Patient reports that he woke up this morning with severe pain to the right hip and groin region. He denies any recent severe trauma.
Does note that 2 weeks ago he slept in his chair, however did not fall to the ground. He suffered a small abrasion to the proximal posterior thigh. He denies chest pain or difficulty breathing. He denies numbness or tingling to his leg. Does
note swelling, which is chronic. Vitals are normal.
On exam, patient uncomfortable secondary to pain. Obvious swelling to the right lower extremity, which patient reports is chronic from lymphedema. Distal sensation and pulses intact. Generalized tenderness to the right hip and posterior thigh
region. Abdomen soft and nontender to palpation. Patient initially seen by DOM, with suspicion for arthritis, history of left hip replacement in the past. X-ray does show moderate osteoarthritis. However, patient noting that he is having
difficulty ambulating. For this reason proceeded with CT abdomen and pelvis without contrast to evaluate for possible occult fracture or additional pathology. CT grossly abnormal with large retroperitoneal hematoma. Patient again denying any
significant direct trauma to the hip. Unclear source of the hematoma, however is on anticoagulation. Blood work subsequently obtained, normal hemoglobin. Plan for CT angio with ultimate plan for admission. Hemodynamically stable at this time
13:50 -no active extravasation on CT imaging with contrast. Patient remains been dynamically stable, normal hemoglobin without indication for Kcentra. Plan for admission for pain management, monitoring, PT/OT
Discharge Plan
Departure
Patient Disposition: Admit
Date of Disposition: 08/03/24
Time of Disposition: 14:00
Presentation/result/management discussed w/ accepting MD/DO: Hospitalist
Discharge Problem:
Hematoma of right iliopsoas muscle
Prescriptions:
No Action
atorvastatin 40 MG tablet
40 mg PO QPM
clonidine HCl 0.1 MG tablet
0.1 mg PO TID
metoprolol succinate 50 MG tablet extended release 24 hr
50 mg PO DAILY
tolterodine 4 MG capsule,extended release 24hr
4 mg PO DAILY
glipizide 5 MG tablet extended release 24hr
15 mg PO DAILY
amlodipine 5 MG tablet
5 mg PO HS
hydrochlorothiazide 25 MG tablet
25 mg PO DAILY
dutasteride 0.5 MG capsule
0.5 mg PO DAILY
Eliquis 2.5 MG tablet
2.5 mg PO BID
lisinopril 20 mg tablet
20 mg PO HS
Janumet 50-1,000 mg Tablet
1 tab PO BID
Referrals:
Azar Hawkins MD [Family Provider] -
Interventions
Interventions:
*Risk Screen - Suicide Last Done: 08/03/24 08:01
*General Assessment Last Done: 08/03/24 08:01
*Neglect/Abuse Screening Last Done: 08/03/24 08:01
*ED- Fall Risk Assessment Last Done: 08/03/24 08:30
*ED COVID-19 Vaccine History Last Done: 08/03/24 08:30
ED-Musculoskeletal Assessment Last Done: 08/03/24 08:30
Discharge Date and Time
Print Language: GEORGIAN
[2024-08-03] MEDS: PERCOCET 5/325 1 TABLET PO (08:45)
[2024-08-03 11:57] LABS: % Basophils 0.4 % (0-2); % Immature Granulocytes 0.5 % (0-0.5); % Neutrophils 84.1 % (42.2-75.2); Absolute Basophils 0.1 10^3/uL (0-0.2); Absolute Eosinophils 0.1 10^3/uL (0-0.7); Absolute Immature Granulocytes 0.1 10^3/uL (0-0.05); Absolute Monocytes 0.7 10^3/uL (0.1-0.6); Absolute Neutrophils 10.2 10^3/uL (1.4-6.5); Hematocrit 38.6 % (39.0-52.0); Mean Corp Hgb Conc. 33.7 g/dL (33.0-37.0); Mean Corpuscular Volume 88.9 fL (80.0-94.0); Mean Platelet Volume 10.6 fL (7.4-10.4); Nucleated Red Blood Cells % 0 % (-); Platelet Count 218 10^3/uL (130-400); Red Blood Cell Count 4.34 10^6/uL (4.70-6.10); Red Cell Dist. Width 12.8 % (11.5-14.5); White Blood Cell Count 12.1 10^3/uL (4.8-10.8)
[2024-08-03 12:10] LABS: APTT 28.9 Sec (23.4-35.0); INR 1.04; PT 13.9 Sec (11.4-14.6)
[2024-08-03 12:17] LABS: ALT (SGPT) 23 U/L (0-50); AST (SGOT) 22 U/L (17-59); Albumin 4.3 g/dl (3.5-5.0); Alkaline Phosphatase 125 U/L (38-126); Blood Urea Nitrogen 26 mg/dl (9-20); Calcium 9.3 mg/dl (8.4-10.2); Carbon Dioxide 29 mmol/L (22-30); Chloride 94 mmol/L (98-107); Estimated Creatinine Clearance 65 ml/min; Glucose 233 mg/dl (70-99); Sodium 134 mmol/L (135-145); Total Bilirubin 1.4 mg/dl (0.2-1.3); Total Protein 6.5 g/dl (6.3-8.2); eGFR > 60.00
[2024-08-03] MEDS: DILAUDID 0.5 MG IV (13:44)
--- NOTE | 2024-08-03 15:08 | HPS.HSE ---
Family Physician
-
Family Physician: Azar Hawkins
Chief Complaint
-
back pain, ambulatory dysfunction
History of Present Illness
Patient is a 84-year-old male with past medical history of multidrug resistant hypertension, hyperlipidemia, history of PICC line induced clot, history of cervical spinal fusion, history of lumbar spinal surgery complicated by wound dehiscence,
history of repeated left hip dislocation, type 2 diabetes, chronic ambulatory dysfunction, lymphedema, peripheral vascular disease came to ER for having worsening right back and hip pain. This started 2 weeks back when patient was sitting in his
chair working on the desk computer and chair 'slipped'. Patient denied of falling out of chair/twisting back in any way. Patient ended up having little bit of blunt trauma to the right hip. Patient noticed some discomfort in the back and was
planned to see an orthopedic surgeon in office tomorrow. Unfortunately over the last few days patient continued to get worse with some radiation to groin and patient was worried about possibly having a kidney stone. Patient came to ER for further
evaluation and was found to having new retroperitoneal hematoma on CT scan.
Of note patient is on Eliquis after having a postoperative upper extremity blood clot secondary to need of PICC placement. No other reported DVT/PE history. Denies history of A-fib/a flutter. Patient has been following with hematology and being
considered on further need of Eliquis.
Medical History
Past Medical History
Past Medical History: Reports Other
Additional Past Medical History:
history of multidrug resistant hypertension, hyperlipidemia, history of PICC line induced clot, history of cervical spinal fusion, history of lumbar spinal surgery complicated by wound dehiscence, history of repeated left hip dislocation, type 2
diabetes, chronic ambulatory dysfunction, lymphedema, peripheral vascular disease
Past Surgical History: Reports Other
Social History
Tobacco: Non-smoker
Alcohol: None
Personal:
Living: With Family
Family History
Family History: Not pertinent
Allergies / Home Medications
Allergies reflects when Allergies were last updated in [employer].
Home Medications with original date entered in [facility]
Allergy/Medication List:
Allergies
Allergy/AdvReac Type Severity Reaction Status Date / Time
No Known Allergies Allergy Verified 08/03/24 08:05
Home Medications
amlodipine 5 mg tablet 5 mg PO HS Blood Pressure 08/03/20
apixaban 2.5 mg tablet (Eliquis) 2.5 mg PO BID Blood Clot Prevention/Tx 08/03/20
atorvastatin 40 mg tablet 40 mg PO QPM High Cholesterol 08/03/20
clonidine HCl 0.1 mg tablet 0.1 mg PO TID Blood Pressure 08/03/20
dutasteride 0.5 mg capsule 0.5 mg PO DAILY Benign prostatic hyperpla 08/03/20
glipizide 5 mg tablet, extended release 24 hr 15 mg PO DAILY 08/03/20
hydrochlorothiazide 25 mg tablet 25 mg PO DAILY Fluid Retention/Swelling 08/03/20
metoprolol succinate 50 mg tablet,extended release 24 hr 50 mg PO DAILY Blood Pressure 08/03/20
tolterodine 4 mg capsule,extended release 24 hr 4 mg PO DAILY Urinary Issue 08/03/20
lisinopril 20 mg tablet 20 mg PO HS Blood Pressure 11/21/23
sitagliptin phosphate 50 mg-metformin 1,000 mg tablet (Janumet) 1 tab PO BID Diabetes 12/01/23
Review of Systems
-
A 12 point ROS was completed and negative except as noted: Yes
Physical Exam
Vital Signs
Vital Signs
Temp Pulse Resp BP Pulse Ox
97.7 F 81 16 146/73 94
08/03/24 08:01 08/03/24 15:00 08/03/24 15:00 08/03/24 15:00 08/03/24 13:45
Physical Exam
General: No Apparent Distress
HEENT: Atraumatic
Respiratory: Clear
Cardiac: S1/S2 and Regular Rhythm; No Murmur or Rub
GI: Soft, Non Tender and Non Distended; No Organomegaly
Musculoskeletal: Edema, Left Lower Extremity and Edema, Right Lower Extremity
Skin: No Rash
Neuro: Awake, Alert, Oriented and Nonfocal/grossly intact
Laboratory Results
-
08/03/24 11:47
08/03/24 11:47
Laboratory Results
PT 13.9 Sec (11.4-14.6) 08/03/24 11:47
INR 1.04 08/03/24 11:47
APTT 28.9 Sec (23.4-35.0) 08/03/24 11:47
Total Bilirubin 1.4 mg/dl (0.2-1.3) H 08/03/24 11:47
AST 22 U/L (17-59) 08/03/24 11:47
ALT 23 U/L (0-50) 08/03/24 11:47
Alkaline Phosphatase 125 U/L (38-126) 08/03/24 11:47
Impression/Plan
-
CT a/p
1. LARGE 25 cm ACUTE RIGHT RETROPERITONEAL HEMATOMA in the iliopsoas muscles extending from the upper pole of the right kidney to the right hip.
2. Large amount fecal material throughout the colon suggesting constipation.
3. Mild colonic diverticulosis.
4. Moderately distended urinary bladder.
5. Large fat-containing left indirect inguinal hernia.
6. Moderate chronic bilateral renal disease containing benign-appearing cysts.
7. 2.2 cm pancreatic head cyst. Diagnostic possibilities are (1) a cystic pancreatic tumor or (2) a pancreatic pseudocyst.
8. Small hiatal hernia.
9. 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
10. Previous multilevel lower lumbar laminectomies and bilateral posterior instrumentation/fusion.
11. Superior endplate fracture of L1 with moderate loss of vertebral body height.

1. Right retroperitoneal hematoma exacerbated by Eliquis
Back pain
- comes in for 2 weeks of ongoing pain after have some minor inj in chair (not a fall)
- CT a/p findings as above
- F/u CT angio a/p by ER physician, did not show any active bleeder
- Hemoglobin stable at 13, monitor and will require transfusion if drops less than < 7
- Pain medication ordered
- PT/OT for tomorrow morning, may require rehab placement
- Previous records reviewed and no venous Doppler showing any blood clot in DH. Patient PICC line related blood clot was in [place] after lumbar spinal surgery. Will hold Eliquis moving forward.
2. Multidrug resistant hypertension
-Continue on regimen of Norvasc/clonidine/hydrochlorothiazide/lisinopril/Toprol
3. BPH
-Maintained on dutasteride
4. HLD
- continue on atorvastatin
5. Type II DM
-Maintain on Janumet/glipizide
-Diabetic diet and insulin sliding scale ordered
history of cervical spinal fusion
history of lumbar spinal surgery complicated by wound dehiscence
history of repeated left hip dislocation
chronic ambulatory dysfunction
lymphedema
peripheral vascular disease
Inguinal hernia repair
Full code
SCD
Total time spent : 82 mins
I personally saw and examined the patient.
I have reviewed all diagnostic interpretations and treatment plans as written.
Time includes patient management by me, time spent at the patients bedside, time to review lab and imaging results, discussing patient care, documentation in the medical record, and time spent with the family or caregiver and discussing care plan
with RN/Consultants.
[2024-08-03 17:29] LABS: Glucose - Point of Care 271 mg/dl (70-99)
[2024-08-03] MEDS: GLUCOPHAGE 1000 MG PO (17:53)
[2024-08-03] MEDS: CATAPRES 0.1 MG PO ×2 (17:53→21:11)
[2024-08-03] MEDS: LIPITOR 40 MG PO (17:54)
[2024-08-03] MEDS: JANUVIA 50 MG PO (17:54)
[2024-08-03] MEDS: NOVOLOG FLEXPEN-LOW RESISTANCE 3 UNITS SC (18:06)
--- NOTE | 2024-08-03 18:33 | PTCARENOTE ---
pt admitted from ED Aox3. denies pain currently. Lung sounds diminished B/L on RA. abd soft NT +BSx4. cont b&B. skin CDI, +2 b/lle edema. pt has limited lateral ROM of his neck d/t surgical hx and endorses recent falls. pt uses [facility]W at home, 1 story
home. CB in reach instructed on use.
[2024-08-03] MEDS: ZESTRIL 20 MG PO (21:13)
[2024-08-03] MEDS: NORVASC 5 MG PO (21:14)
[2024-08-03 21:40] LABS: Glucose - Point of Care 156 mg/dl (70-99)
--- NOTE | 2024-08-04 05:36 | DOWNTIME ---
There was a [employer] Vice President Downtime on 08/04/2024 from 0100 to 08/05/2023 at 0420 . Downtime documentation of patient's care, including medication administrations, has been reconciled in the electronic record per guidelines. Refer to the
patient's paper chart under the miscellaneous tab to see printed paper medication records and downtime forms.
[2024-08-04 07:23] LABS: Glucose - Point of Care 110 mg/dl (70-99)
[2024-08-04] MEDS: NOVOLOG FLEXPEN-LOW RESISTANCE SC (07:24)
[2024-08-04 07:35] VITALS: BP 152/86
[2024-08-04] MEDS: GLUCOPHAGE 1000 MG PO (08:00)
[2024-08-04] MEDS: DETROL LA 4 MG PO (08:00)
[2024-08-04] MEDS: GLUCOTROL XL (EXTENDED RELEASE) 15 MG PO (08:01)
[2024-08-04] MEDS: TOPROL XL 50 MG PO (08:01)
[2024-08-04] MEDS: JANUVIA 50 MG PO (08:01)
[2024-08-04] MEDS: ORETIC 25 MG PO (08:01)
[2024-08-04] MEDS: CATAPRES 0.1 MG PO (08:02)
[2024-08-04] MEDS: MIRALAX 17 GRAMS PO (08:02)
[2024-08-04] MEDS: PROSCAR 5 MG PO (08:02)
[2024-08-04 08:22] LABS: Hematocrit 38.5 % (39.0-52.0); Hemoglobin 12.7 g/dL (13.0-18.0); Mean Corpuscular Hgb 29.9 pg (27.0-31.0); Mean Corpuscular Volume 90.6 fL (80.0-94.0); Mean Platelet Volume 10.9 fL (7.4-10.4); Platelet Count 244 10^3/uL (130-400); Red Blood Cell Count 4.25 10^6/uL (4.70-6.10); Red Cell Dist. Width 13.2 % (11.5-14.5)
[2024-08-04 08:52] LABS: Blood Urea Nitrogen 30 mg/dl (9-20); Calcium 9.3 mg/dl (8.4-10.2); Carbon Dioxide 30 mmol/L (22-30); Chloride 96 mmol/L (98-107); Estimated Creatinine Clearance 59 ml/min; Glucose 120 mg/dl (70-99); Potassium 3.8 mmol/L (3.5-5.1); Sodium 135 mmol/L (135-145); eGFR > 60.00
[2024-08-04 10:30] VITALS: BP 123/63; PULSE 82; O2SAT 98
[2024-08-04 10:33] VITALS: BP 123/63; PULSE 89; O2SAT 96
--- NOTE | 2024-08-04 11:01 | CM ---
Addendum entered by May Barajas 08/04/24 14:02:
CM spoke with patient and she would like patient to come home. Patient referred to [facility]. Patient reviewed by [facility] but does not qualify. Patient does not want to go to rehab and concurs. CM updated physician. CM will continue
to follow for discharge planning needs.
Addendum entered by May Barajas 08/04/24 12:17:
living will/advance declaration information provided to patient. Patient now stating he wants to go home with [facility] or [facility]. CM will update physician.
Original Note:
Patient seen at bedside. Patient stated that he lives with his in a [place] community, 2 story home but 1st floor set up. Patient stated that his PCP iis Dr. Sorensen and he uses the [facility] in [place]. Patient has been at [facility] in the
past and is still driving. Patient stated that he is 'self sufficient' and does not anticipate going to SNF or Rehab as recommended by therapy. CM will continue to follow for discharge planinng needs.
Plan; SNF vs Acute rehab pending assessment vs home with Vn
[2024-08-04 11:34] LABS: Glucose - Point of Care 227 mg/dl (70-99)
[2024-08-04] MEDS: NOVOLOG FLEXPEN-LOW RESISTANCE 3 UNITS SC (12:41)
--- NOTE | 2024-08-04 13:03 | W.PN.HOSP.TC ---
Today's Communication/Plan
-
discharge planning for snf rehab
Assessment / Plan
Assessment / Plan
CT a/p
1. LARGE 25 cm ACUTE RIGHT RETROPERITONEAL HEMATOMA in the iliopsoas muscles extending from the upper pole of the right kidney to the right hip.
2. Large amount fecal material throughout the colon suggesting constipation.
3. Mild colonic diverticulosis.
4. Moderately distended urinary bladder.
5. Large fat-containing left indirect inguinal hernia.
6. Moderate chronic bilateral renal disease containing benign-appearing cysts.
7. 2.2 cm pancreatic head cyst. Diagnostic possibilities are (1) a cystic pancreatic tumor or (2) a pancreatic pseudocyst.
8. Small hiatal hernia.
9. 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
10. Previous multilevel lower lumbar laminectomies and bilateral posterior instrumentation/fusion.
11. Superior endplate fracture of L1 with moderate loss of vertebral body height.

1. Right retroperitoneal hematoma exacerbated by Eliquis
Back pain
- comes in for 2 weeks of ongoing pain after have some minor inj in chair (not a fall)
- CT a/p findings as above
- F/u CT angio a/p by ER physician, did not show any active bleeder
- Hemoglobin stable at 13, monitor and will require transfusion if drops less than < 7
- Previous records reviewed and no venous Doppler showing any blood clot in [facility]. Patient PICC line related blood clot was in [place] after lumbar spinal surgery. Will hold Eliquis moving forward.
- PT evaluated and official report pending
2. Multidrug resistant hypertension
-Continue on regimen of Norvasc/clonidine/hydrochlorothiazide/lisinopril/Toprol
3. BPH
-Maintained on dutasteride
4. HLD
- continue on atorvastatin
5. Type II DM
-Maintain on Janumet/glipizide
-Diabetic diet and insulin sliding scale ordered
history of cervical spinal fusion
history of lumbar spinal surgery complicated by wound dehiscence
history of repeated left hip dislocation
chronic ambulatory dysfunction
lymphedema
peripheral vascular disease
Inguinal hernia repair
Full code
SCD
Anticipated Discharge: Within 24 hours
Subjective/Interval History
-
Date of Service: August 04, 2024
sitting comfortably in chair
denies back pain/spasms
no other reported problems
Objective Data
-
Labs:
Laboratory Results
08/04/24
07:26
WBC 13.0 H
Hgb 12.7 L
Hct 38.5 L
Plt Count 244
Sodium 135
Potassium 3.8
Chloride 96 L
Carbon Dioxide 30
BUN 30 H
Creatinine 1.0
Glucose 120 H
Calcium 9.3
Vital Signs:
Vital Signs
Temp Pulse Resp BP Pulse Ox
97.6 F 100 18 152/86 93
08/04/24 07:35 08/04/24 07:35 08/04/24 07:35 08/04/24 08:01 08/04/24 09:16
I&O
08/03/24 08/04/24 08/05/24
06:59 06:59 06:59
Intake Total 240 / 240 420 / 420
Output Total 300 / 300
Balance -60 / -60 420 / 420
Review of Systems
-
Respiratory: Reports No Symptoms
Cardiac: Reports No Symptoms
Abdomen/GI: Reports No Symptoms
Physical Exam
-
General: No Apparent Distress and Comfortable
HEENT: Negative Oxygen
Musculoskeletal: No Edema
Neuro: Awake, Alert, Oriented, No Motor Deficits and Nonfocal/Grossly Intact
Psych: Calm
[2024-08-04 15:09] VITALS: BP 161/84
--- NOTE | 2024-08-06 15:39 | W.DCSUMMARY ---
Discharge Summary
Discharge Data
Date of Admission: 08/03/24
Date of Discharge: 08/04/24
-
Pending Results: No
Hospital Course
Discharging Physician : Dr Mcihael Gonzales
Disposition : Home with home care
Primary care physician : Dr Jac Hawkins
Principal Discharge diagnosis :
Retroperitoneal hematoma exacerbated by Eliquis use
Chronic Discharge diagnosis :
Multidrug resistant hypertension
Benign prostatic hyperplasia
Hyperlipidemia
Type 2 diabetes mellitus
History of cervical spinal fusion
History of lumbar spinal surgery complicated by wound dehiscence
History of repeated left hip dislocation
Chronic ambulatory dysfunction
Lymphedema
Peripheral vascular disease
History of inguinal hernia repair
Hospital Course :
Patient is 84-year-old male with above-mentioned past medical history came to ER for having ongoing worsening 2-week of back pain. Initially patient had minor injury to right side while working on a desk computer, the way patient explained it was
not a mechanical fall and she had slipped somewhat causing liver blunt trauma to right upper hip. Patient noticed some right back pain after that as well for which patient was planned to be evaluated by orthopedic surgery outpatient. This continue
to worsening and started radiating to groin. In ER patient had a CT abdomen pelvis which showed a large 25 cm retroperitoneal hematoma in the iliopsoas muscle extending from right kidney to the hip. Patient have history of provoked upper extremity
DVT and is on Eliquis for this reason, this was held. Patient underwent a follow-up CT angio of abdomen pelvis which did not show any active bleeding vessels. Patient was monitored in the hospital and did not have any worsening anemia and did not
require blood transfusion. Case was discussed with primary statistics tutor who agreed for patient to be maintained off of Eliquis at discharge with plan to follow-up in office. Patient was evaluated by physical therapy and was appropriate for skilled
nursing facility for rehab although patient declined and was discharged home with home health care.
Important imaging findings :
None
Procedure findings :
None
Discharge Plan
-
Patient Disposition: Home with Home Care
Discharge Diagnosis/Procedures: Retroperitoneal hematoma
Condition: Fair
Diet: Regular
Activity: As tolerated
Driving Restrictions: As prior to admission
Bathing Restrictions: OK to Shower
Blood Work: CBC in 1 week
Other Services: VN and PT
Referrals:
Hiren Hernández DO [Active] - in one week
Azar Hawkins MD [Family Provider] - in one week
Additional Discharge Medication Instructions: STOP eliquis
Prescriptions:
Continued
atorvastatin 40 MG tablet
40 mg PO QPM
clonidine HCl 0.1 MG tablet
0.1 mg PO TID
metoprolol succinate 50 MG tablet extended release 24 hr
50 mg PO DAILY
tolterodine 4 MG capsule,extended release 24hr
4 mg PO DAILY
glipizide 5 MG tablet extended release 24hr
15 mg PO DAILY
amlodipine 5 MG tablet
5 mg PO HS
hydrochlorothiazide 25 MG tablet
25 mg PO DAILY
dutasteride 0.5 MG capsule
0.5 mg PO DAILY
lisinopril 20 mg tablet
20 mg PO HS
Janumet 50-1,000 mg Tablet
1 tab PO BID
Discontinued
Eliquis 2.5 MG tablet
2.5 mg PO BID
Discharge Orders:
Discharge Patient (As Directed); Ordered 08/04/24
Ordered By: Michael Gonzales
Discharge Date and Time
Discharge Date/Time: 08/04/24 15:39
Print Language: AUSTRALIAN
== END 2024-08-04 15:39 | disposition home health service (06) | DRG 372 ==
LOC: 1 ACUTE 15:48
PROVIDERS: Physician Assistant; ADMITTING PHYSICIAN Hospitalist; EMERGENCY PHYSICIAN Student in an Organized Health Care Education/Training Program; FAMILY PHYSICIAN Family Medicine
DX: K68.3 Retroperitoneal hematoma (principal); D68.32 Hemorrhagic disorder due to extrinsic circulating anticoagulants; K57.30 Diverticulosis of large intestine without perforation or abscess without bleeding; Z79.01 Long term (current) use of anticoagulants; I1A.0 Resistant hypertension; I10 Essential (primary) hypertension; N40.0 Benign prostatic hyperplasia without lower urinary tract symptoms; E78.00 Pure hypercholesterolemia, unspecified; E11.40 Type 2 diabetes mellitus with diabetic neuropathy, unspecified; E11.51 Type 2 diabetes mellitus with diabetic peripheral angiopathy without gangrene; I89.0 Lymphedema, not elsewhere classified; K40.90 Unilateral inguinal hernia, without obstruction or gangrene, not specified as recurrent; K44.9 Diaphragmatic hernia without obstruction or gangrene; N28.9 Disorder of kidney and ureter, unspecified; M16.11 Unilateral primary osteoarthritis, right hip; Z87.891 Personal history of nicotine dependence; Z86.718 Personal history of other venous thrombosis and embolism; Z96.642 Presence of left artificial hip joint; Z96.653 Presence of artificial knee joint, bilateral; Z98.1 Arthrodesis status
CPT/HCPCS: 73502; 73630; 74174; 74176; 80048; 80053; 82962; 85025; 85027; 85610; 85730; 93971; 96374; 97163; 97167; 99285; Q9967